=== PATIENT | male | born 1995 | race Caucasian/White ===

== ENCOUNTER 2020-02-06 07:19 | Emergency (ER) | payer SELFPAY ==
[2020-02-06 07:20] VITALS: BP 127/74; PULSE 60; RESP 17; TEMP 36.3; O2SAT 98; BMI 22.4
--- NOTE | 2020-02-06 07:36 | ED.VISSUMM ---
- ER Visit Summary Date of Service: 02/06/20 Chief Complaint: Abdominal pain History of Present Illness: The patient is a 24 M presenting with abdominal pain. Patient states this started 2 days ago. He states this started after eating greasy fast food. It worsens when he eats greasy food. He has nausea with no vomiting. Denies diarrhea constipation. Denies fever. Denies other complaints. Physical Examination: Vitals are stable. Patient is afebrile. Alert no acute distress. HEENT exam is unremarkable. Neck is supple. Lungs are clear and equal bilaterally. Heart is regular rate and rhythm. Abdomen is soft epigastric tenderness no rebound or guarding Extremities are unremarkable. Skin is warm and dry. Remainder of exam is unremarkable. Emergency Department Course and Treatment: Patient was given IV fluids, Zofran. CBC, chemistries are unremarkable. Liver lipase are normal. Patient was given a GI cocktail. On reevaluation, patient is resting comfortably. He is given prescription for Pepcid. Advised to follow-up with Dr. Crisostomo certified professional ergonomist for no doc. Advised return to the ED for worsening complaints. Disposition: Discharge home Impression: Abdominal pain This note was generated with [employer] dictation software. It may contain incorrect words, spelling, and punctuation that were not noted in review of the chart prior to signing ED Disposition - Plan for ED Patient: Instructions: ED Unknown Causes of Abdominal Pain Male Prescriptions: Famotidine [Pepcid] 20 mg PO BID #28 tab Prescription Printed Referrals: Nas Crisostomo MD [NON-STAFF] - Care Physician,No Primary [Primary Care Provider] -
[2020-02-06 07:44] LABS: Absolute Lymphocyte Count 3.86 X10^3/uL (0.83-4.51); Absolute Neutrophil Count 3.5 X10^3/uL (2.0-7.7); Basophil# 0.04 X10^3/uL; Basophil% 0.5 % (0-1); Eosinophil# 0.16 X10^3/uL; Eosinophils% 1.9 % (0-5); Hematocrit 48.6 % (40-54); Hemoglobin 15.8 g/dL (13.0-16.5); Lymphocyte # 3.86 X10^3/ul (4.0); Lymphocyte % 46.6 % (19-41); Mean Corp Hgb Conc 32.5 g/dL (32-36); Mean Corpuscular Hgb 30.2 pg (27.0-32.0); Mean Corpuscular Volume 92.9 fL (80-94); Mean Platelet Vol. 9.7 fl (6.2-12.0); Monocyte# 0.72 X10^3/uL; Monocyte% 8.7 % (0-10); NRBC Flagged by Analyzer 0 % (0-5); Neutrophil % 42.2 % (47-70); Platelet Count 256 K/mm3 (150-450); RBC Distribution Width CV 11.9 % (11.6-14.6); RBC Distribution Width SD 41.1 fl (35.1-43.9); Red Blood Count 5.23 M/mm3 (4.6-6.2); White Blood Count 8.3 K/mm3 (4.4-11.0)
[2020-02-06] MEDS: Ondansetron 4 MG/2 ML Vial IV (07:45)
[2020-02-06 08:03] LABS: ALB/GLOB Ratio 1.1 RATIO (0.9-2.4); AST(SGOT) 15 U/L (15-37); Alanine Aminotransfer ALT/SGPT 17 U/L (16-61); Albumin, Serum 3.8 g/dL (3.2-5.0); Alkaline Phosphatase 73 U/L (45-117); Anion Gap 3 (5-15); BUN 17 mg/dL (7-18); BUN/Creat Ratio 19.3 RATIO (10-20); Calcium,Total 8.7 mg/dL (8.5-10.1); Chloride 110 mmol/L (98-107); Creatinine, Serum 0.88 mg/dL (0.70-1.30); EST Glomerular Filtration Rate 114 mL/min (>60); Est Glom Filt Rate - Afr Amer 138 mL/min (>60); Estimated Creatinine Clearance 142.56 ml/min; Globulin 3.4 g/dL (2.2-4.2); Glucose 97 mg/dL (74-106); Lipase 83 U/L (73-393); Potassium 4.6 mmol/L (3.5-5.1); Protein, Total 7.2 g/dL (6.4-8.2); Sodium Level 143 mmol/L (136-145)
[2020-02-06] MEDS: Mag Hydrox/Al Hydrox/Simeth 30 ML UDC PO (08:11)
--- NOTE | 2020-02-06 08:29 | ED.DEP ---
ED Disposition - Plan for ED Patient: Instructions: ED Unknown Causes of Abdominal Pain Male Prescriptions: Famotidine [Pepcid] 20 mg PO BID #28 tablet Referrals: Care Physician,No Primary [Primary Care Provider] - Nas Crisostomo MD [NON-STAFF] -
[2020-02-06 08:38] VITALS: BP 130/81; PULSE 54; RESP 16; O2SAT 98
--- NOTE | 2020-02-07 05:33 | ED.RN ---
PT CALLED ASKING FOR A NEW WORK NOTE HE HAS LOST HIS ORIGINAL. COPY MADE AND LEFT AT TRIAGE FOR HIM TO SCOUTS. PT UPDATED AND THANKFUL.
== END 2020-02-06 08:39 | disposition home or self-care (01) ==
PROVIDERS: Emergency Provider Emergency Medicine
DX: R10.9 Unspecified abdominal pain (principal); F17.200 Nicotine dependence, unspecified, uncomplicated
CPT/HCPCS: 80053; 83690; 85025; 96361; 96374; 99285; J7030; A4216; J2405

== ENCOUNTER 2020-12-30 13:53 | Emergency (ER) | payer SELFPAY ==
[2020-12-30 13:55] VITALS: BP 129/82; PULSE 65; RESP 18; TEMP 36; O2SAT 99; BMI 23.3
[2020-12-30 14:47] LABS: Absolute Neutrophil Count 6.9 X10^3/uL (2.0-7.7); Basophil# 0.05 X10^3/uL; Basophil% 0.5 % (0-1); Eosinophil# 0.03 X10^3/uL; Eosinophils% 0.3 % (0-5); Hematocrit 49.2 % (40-54); Hemoglobin 16.3 g/dL (13.0-16.5); Lymphocyte % 22.7 % (19-41); Mean Corp Hgb Conc 33.1 g/dL (32-36); Mean Corpuscular Hgb 29.9 pg (27.0-32.0); Mean Corpuscular Volume 90.1 fL (80-94); Mean Platelet Vol. 9.3 fl (6.2-12.0); Monocyte# 0.45 X10^3/uL; Monocyte% 4.6 % (0-10); NRBC Flagged by Analyzer 0 % (0-5); Neutrophil # 6.93 X10^3/uL (2.7-7.7); Neutrophil % 71.6 % (47-70); Platelet Count 301 K/mm3 (150-450); RBC Distribution Width CV 12.2 % (11.6-14.6); Red Blood Count 5.46 M/mm3 (4.6-6.2); White Blood Count 9.7 K/mm3 (4.4-11.0)
[2020-12-30 14:59] LABS: Anion Gap 7 (5-15); BUN 7 mg/dL (7-18); BUN/Creat Ratio 8.1 RATIO (10-20); Calcium,Total 9.2 mg/dL (8.5-10.1); Chloride 106 mmol/L (98-107); Creatinine, Serum 0.87 mg/dL (0.70-1.30); EST Glomerular Filtration Rate 115 mL/min (>60); Est Glom Filt Rate - Afr Amer 139 mL/min (>60); Glucose 104 mg/dL (74-106); Potassium 4.1 mmol/L (3.5-5.1); Sodium Level 140 mmol/L (136-145)
[2020-12-30 15:12] LABS: Amphetamine Urine VISTA NEGATIVE (<1000 ng/mL); Barbiturate Urine VISTA NEGATIVE (< 200 ng/mL); Benzodiazepine Urine VISTA NEGATIVE (< 200 ng/mL); Cocaine Urine VISTA NEGATIVE (< 300 ng/mL); Ecstacy Urine VISTA NEGATIVE (< 500 ng/mL); Methadone Urine VISTA NEGATIVE (< 300 ng/mL); PCP Urine VISTA NEGATIVE (< 25 ng/mL); THC Urine VISTA POSITIVE (< 50 ng/mL); Vista UDS pH Range 8
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
[2020-12-30 16:38] VITALS: BP 140/78; PULSE 78; RESP 16; TEMP 36.8; O2SAT 98
[2020-12-30 16:42] VITALS: BP 148/54; PULSE 74; RESP 16; TEMP 36.6; O2SAT 98
[2020-12-30] MEDS: Doxycycline 100 MG CAPSULE PO (16:46)
[2020-12-30] MEDS: Ceftriaxone 500 MG Vial IM (16:49)
[2020-12-30 17:07] LABS: Neisserai gonorrhoeae by PCR Negative (Negative); Probe Check PASS
[2020-12-30 17:09] LABS: Chlamydia Trachomatis by PCR POSITIVE (Negative)
--- NOTE | 2020-12-30 17:12 | ED.RN ---
ATTEMPTED TO CALL PT WITH RESULTS. MAILBOX IS FULL UNABLE TO LEAVE A MESSAGE
--- NOTE | 2020-12-30 19:51 | ED.RN ---
PATIENT MADE AWARE OF TEST RESULTS. WHEN PICKING UP WORK EXCUSE
== END 2020-12-30 16:51 | disposition home or self-care (01) ==
PROVIDERS: Emergency Provider Emergency Medicine
DX: N34.2 Other urethritis (principal); F41.9 Anxiety disorder, unspecified; F17.200 Nicotine dependence, unspecified, uncomplicated
CPT/HCPCS: 80048; 80307; 82077; 85025; 87086; 87491; 87591; 96372; 99283

== ENCOUNTER 2021-01-02 11:11 | Emergency (ER) | payer SELFPAY ==
[2021-01-02 11:12] VITALS: BP 151/92; PULSE 89; RESP 16; TEMP 36.6; O2SAT 97; BMI 22.7
[2021-01-02 12:49] LABS: Absolute Lymphocyte Count 2.13 X10^3/uL (0.83-4.51); Absolute Neutrophil Count 6.8 X10^3/uL (2.0-7.7); Basophil# 0.04 X10^3/uL; Basophil% 0.4 % (0-1); Eosinophil# 0.01 X10^3/uL; Eosinophils% 0.1 % (0-5); Hematocrit 47.9 % (40-54); Hemoglobin 15.9 g/dL (13.0-16.5); Lymphocyte # 2.13 X10^3/ul (0.83-4.51); Lymphocyte % 22.2 % (19-41); Mean Corp Hgb Conc 33.2 g/dL (32-36); Mean Corpuscular Hgb 30.1 pg (27.0-32.0); Mean Corpuscular Volume 90.5 fL (80-94); Mean Platelet Vol. 9.3 fl (6.2-12.0); Monocyte# 0.61 X10^3/uL; Monocyte% 6.4 % (0-10); NRBC Flagged by Analyzer 0 % (0-5); Neutrophil # 6.76 X10^3/uL (2.7-7.7); Neutrophil % 70.6 % (47-70); Platelet Count 305 K/mm3 (150-450); RBC Distribution Width CV 11.9 % (11.6-14.6); RBC Distribution Width SD 39.8 fl (35.1-43.9); Red Blood Count 5.29 M/mm3 (4.6-6.2); White Blood Count 9.6 K/mm3 (4.4-11.0)
[2021-01-02 13:00] LABS: Anion Gap 5 (5-15); BUN 17 mg/dL (7-18); BUN/Creat Ratio 20.8 RATIO (10-20); Calcium,Total 9.5 mg/dL (8.5-10.1); Chloride 105 mmol/L (98-107); Creatinine, Serum 0.82 mg/dL (0.70-1.30); EST Glomerular Filtration Rate 123 mL/min (>60); Est Glom Filt Rate - Afr Amer 149 mL/min (>60); Estimated Creatinine Clearance 149.37 ml/min; Glucose 106 mg/dL (74-106); Potassium 4.1 mmol/L (3.5-5.1); Sodium Level 136 mmol/L (136-145)
[2021-01-02 13:21] LABS: Amphetamine Urine VISTA NEGATIVE (<1000 ng/mL); Barbiturate Urine VISTA NEGATIVE (< 200 ng/mL); Benzodiazepine Urine VISTA NEGATIVE (< 200 ng/mL); Cocaine Urine VISTA NEGATIVE (< 300 ng/mL); Ecstacy Urine VISTA NEGATIVE (< 500 ng/mL); Methadone Urine VISTA NEGATIVE (< 300 ng/mL); PCP Urine VISTA NEGATIVE (< 25 ng/mL); THC Urine VISTA POSITIVE (< 50 ng/mL); Vista UDS pH Range 6
[2021-01-02 13:21] LABS: Alcohol, Blood (Medical)-Serum < 3.0 mg/dL
--- NOTE | 2021-01-02 13:49 | ED.RN ---
CRISIS IN DEPT AND AWARE PT IS READY TO BE ASSESSED
[2021-01-02 14:50] VITALS: BP 139/72; PULSE 84; RESP 16; O2SAT 99
--- NOTE | 2021-01-02 16:03 | ED.RN ---
pt presents paranoid behavior with care. apprehensive about blood work. would not let nurse use betadine until nurse used and used on mother then apprehensivelywas going to allow it until mom started washing betadine off and then pt became resistant and paranoid asking when she was washing it off and pulled arm aware to stop it from touchng his skin. pt fixated on work, everyone hating him, wanting to be excepted. peoples negative comments and conspiring against him. states i care too much and people take advantage off me. pt gets very agitated about the thought of people using him and taking advantage of him with his voice escalating becoming restless/rocking forward and back and continuously rubbing hands back and forth through hair when he gets aggitated.
[2021-01-02 17:06] VITALS: PULSE 72; RESP 16; O2SAT 99
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
--- NOTE | 2021-01-02 18:22 | ED.RN ---
pt moother reports she was under the impression pt was pink slipped and was going to a place in [place] for therapy. this nurse called crisis center for clarification. counselor notes report that he would benefit from placement to a facility for some inpatient therapy but there was no documentation that of nee for pink slip. this nurse does not currently have pink slip for pt. discussed with counseling center if there was need for one or other updates please call the emergency room to update staff. crisis is working to place patient by no pink slip at this time.
--- NOTE | 2021-01-02 19:11 | ED.RN ---
[facility] called to update: pt has admission pending to [facility] waiting final approval.
--- NOTE | 2021-01-02 20:12 | ED.RN ---
HAD NO BEDS AVAILABLE ANABELL, SAID IF WE COULD KEEP HIM OVERNIGHT THEY WOULD HAVE A BED IN THE MORNING AT [facility]
[2021-01-02] MEDS: LORazepam 1 MG Tablet PO (20:15)
[2021-01-02 21:34] VITALS: BP 121/84; PULSE 61; RESP 16; O2SAT 99
--- NOTE | 2021-01-02 22:54 | ED.RN ---
CALLED TO SET UP A RIDE FOR THE PATIENT FOR IN THE MORNING TO GO TO [facility] AT 0700
[2021-01-03 00:58] VITALS: RESP 14
[2021-01-03 01:30] VITALS: RESP 16
[2021-01-03 02:00] VITALS: RESP 14
[2021-01-03 03:07] VITALS: RESP 16
[2021-01-03 04:36] VITALS: RESP 16
[2021-01-03 05:01] VITALS: BP 132/84; PULSE 75; RESP 16; O2SAT 99
== END 2021-01-03 07:42 ==
LOC: ED 13:23
PROVIDERS: Emergency Provider Emergency Medicine
DX: F22 Delusional disorders (principal); Z72.0 Tobacco use
CPT/HCPCS: 80048; 80307; 82077; 85025; 99285

== ENCOUNTER 2021-05-24 21:50 | Emergency (ER) | payer MEDICAID, SELFPAY ==
[2021-05-24 21:50] VITALS: BP 137/74; PULSE 73; RESP 16; TEMP 36.6; O2SAT 98; BMI 26.9
--- NOTE | 2021-05-24 23:01 | US_ITS ---
STUDY: SCROTUM ULTRASOUND REASON FOR EXAM: Male, 25 years old. Pain TECHNIQUE: Ultrasound evaluation of the scrotum was performed with color Doppler and static zepeda-scale imaging. COMPARISON: None. FINDINGS: RIGHT TESTICLE INTRATESTICULAR: There is a normal size of the right testicle. The right testicle measures 5.6 x 3.0 x 2.6 cm. There is a homogenous echotexture. There is normal arterial and normal venous vascularity. There is no demonstrated right testicular mass or cyst. EXTRATESTICULAR: The epididymis is normal in size. The epididymis head measures 0.9 x 1.1 x 1.0 cm. There is normal vascularity of the epididymis. There is no demonstrated epididymal cystic structure. There is no demonstrated hydrocele. There is no demonstrated varicocele. There is no demonstrated extratesticular mass or cyst. The right scrotal wall measures 0.3 cm. LEFT TESTICLE INTRATESTICULAR: There is a normal size of the left testicle. The left testicle measures 5.2 x 3.0 x 2.0 cm. There is a homogenous echotexture. There is normal arterial and normal venous vascularity. There is no demonstrated left testicular mass or cyst. EXTRATESTICULAR: The epididymis is normal in size. The epididymis head measures 1.1 x 1.3 x 1.0 cm. There is normal vascularity of the epididymis. There is no demonstrated epididymal cystic structure. There is no demonstrated hydrocele. There is no demonstrated varicocele. There is no demonstrated extratesticular mass or cyst. The left scrotal wall measures 0.3 cm. US/Testicular with Arterial Flow IMPRESSION: Normal bilateral testicular ultrasound. Electronically Signed: La Mann MD at 0:53 EDT , Service support ,
--- NOTE | 2021-05-24 23:04 | EDS_ITS ---
HPI History of Present Illness Chief Complaint: Male Pain/Injury Narrative Narrative: Patient presents with left testicular pain that started approximately an hour ago, when he went to stand up. He has past medical history of Asperger's, and states that he is having problems with erectile dysfunction for the last 3 weeks. He has not had sexual intercourse. He denies any penile discharge. He was wearing boxer briefs, and went to stand up, and now has sharp pain mainly in his left testicle on the posterior aspect. He denies any dysuria or hematuria. No fevers or chills. He states that he removed his undergarment because it felt like it was pressing on it, causing him pain. [facility] Medical History (Updated 05/25/21 @ 03:54 by Musa Jorge MD) Asthma Home Medications risperidone mg 05/24/21 [History Last Taken Unknown] Allergy/AdvReac Type Severity Reaction Status Date / Time No Known Allergies Allergy Verified 05/24/21 21:52 Social History Smoking Status: Never smoker ROS ROS ED ROS Narrative Constitutional: No fever, no chills. HEENT: No sore throat. No neck pain. No loss of vision. No rhinorrhea. Cardiovascular: No chest pain. No palpitations. No pedal edema. Respiratory: No cough, no shortness of breath. Abdominal: No abdominal pain. No nausea. No vomiting. Genitourinary: No dysuria. No hematuria. Positive left posterior testicular pain. Musculoskeletal: No myalgias. No arthralgias. Neurologic: No headaches. No dizziness. No lightheadedness. Skin: No rash. No change in color. Psychiatric: No depression. No anxiety. EXAM Physical Exam Narrative Exam Narrative: Afebrile. Vital signs noted. HEENT: Normocephalic. Atraumatic. PERRL, EOMI. Neck soft and supple. No point tenderness or step off. Cardiovascular: Regular rate and rhythm. No murmurs, rubs, or gallops appreciated. Respiratory: No tachypnea. Lungs clear to auscultation bilaterally. Gastrointestinal: Abdomen soft, nontender, with normoactive bowel sounds. No rebound or guarding. Genitourinary: Chaperoned examination reveals left epididymal tenderness. Normal testicular lie. No testicular tenderness bilaterally. Neurological: Awake. Alert. Nonfocal, nonlateralizing. Skin: No rash. Normal color. No pallor. Musculoskeletal: No pedal edema. Full range of motion extremities. Const Vital Signs: 05/24/21 21:50 05/25/21 00:38 05/25/21 02:08 Temperature 97.8 F Temperature Source Temporal Pulse Rate 73 78 76 Respiratory Rate 16 16 17 Blood Pressure 137/74 H 135/72 H 130/78 H Blood Pressure Mean 95 93 95 Pulse Ox 98 98 98 Oxygen Delivery Method Room Air Room Air MDM MDM MDM Narrative Medical decision making narrative: I do feel that the patient may have epididymitis. However, given its sudden onset, ultrasound will be obtained. I will also obtain a urinalysis. He was given 1 [place] tablet for analgesia. His ultrasound shows no evidence of epididymitis or orchitis. It was read as a normal bilateral testicular ultrasound. Results have been faxed to the emergency department from radiology. Urinalysis shows 0-5 WBCs within normal limits. At this point in time, I am unsure to the cause of his testicular pain. However, I feel he can be discharged safely home with follow-up to urology. He was told to wear more constrictive underwear, and take [id number] analgesics. Disposition is discharged home in stable condition. Lab Data Attestation: I reviewed the patient's lab results. Labs: Laboratory Results - last 24 hr 05/24/21 23:20 Urine Color Yellow Urine Clarity Cloudy Urine pH 8.0 Ur Specific [place] 1.015 Urine Protein 15 H Urine Glucose (UA) Normal Urine Ketones Negative Urine Occult Blood Negative Urine Nitrite Negative Urine Bilirubin Negative Urine Urobilinogen 4 H Ur Leukocyte Esterase 25 H Urine RBC 0 SEEN Urine WBC 0-5 SEEN Ur Squamous Epith Cells 0 SEEN Amorphous Sediment 4+ Urine Bacteria RARE Urine Mucus 0 SEEN Discharge Plan Triage Chief Complaint: Male Pain/Injury ED Provider: Musa Jorge Dx/Rx/DC Orders Clinical Impression: Left testicular pain Prescriptions: No Action risperidone 4 mg tablet RF: 0 Primary Care Provider: Care Physician,No Primary Referrals: Anne-Marie Mars MD [STAFF PHYSICIAN] - 05/26/21 Care Physician,No Primary [Primary Care Provider] - Clinic,[facility] [NON-STAFF] - Disposition Disposition: Home, Self Care Discharge Date/Time: 05/25/21 04:00
[2021-05-24] MEDS: HYDROcodone Bitartrate/Apap 5/325 Tablet PO (23:13)
[2021-05-24 23:25] LABS: Mucous, Urine 0 SEEN /hpf (<or=2+); Red Blood Cells-Urine 0 SEEN /hpf (0-5); Squamous Epithelial Cells - UA 0 SEEN /hpf (0-5)
[2021-05-24 23:35] LABS: Color, Urine Yellow (Yellow); Glucose, Dipstick Normal (Normal); Ketone-Dipstick Negative (Negative); Leukocyte Esterase-Dipstick 25 /ul (Negative); Nitrite-Dipstick Negative (Negative); Occult Blood-Urine Negative /ul (Negative); Protein-Dipstick 15 mg/dl (Negative); Specific Gravity, Urine 1.015 (1.002-1.030); Urine Bilirubin Dipstick Negative (Negative); Urine Clarity Cloudy (Clear); Urine Urobilinogen 4 mg/dl (Normal)
[2021-05-25 00:07] LABS: Amorphous Sediment 4+; Bacteria RARE /hpf (None Seen); White Blood Cells 0-5 SEEN /hpf (0-5)
[2021-05-25 00:38] VITALS: BP 135/72; PULSE 78; RESP 16; O2SAT 98
[2021-05-25 02:08] VITALS: BP 130/78; PULSE 76; RESP 17; O2SAT 98
== END 2021-05-25 04:00 | disposition home or self-care (01) ==
PROVIDERS: Emergency Provider Emergency Medicine
DX: N50.812 Left testicular pain (principal)
CPT/HCPCS: 76870; 81001; 93976; 99283

== ENCOUNTER 2021-09-24 01:40 | Emergency (ER) | payer MEDICAID, SELFPAY ==
[2021-09-24 01:41] VITALS: BP 138/76; PULSE 89; RESP 27; TEMP 37.3; O2SAT 98; BMI 27.0
--- NOTE | 2021-09-24 01:53 | RAD_ITS ---
EXAM: XR CHEST, 1 VIEW CLINICAL INDICATION: chest pain chest pain TECHNIQUE: Frontal view of the chest. This report was created using [employer] report generation technology. COMPARISON: 12/12/2015. FINDINGS: LIMITATIONS: The exam is slightly limited by shallow depth of inspiration as well as kyphotic positioning. LUNGS AND PLEURAL SPACES: Unremarkable. No consolidation or edema. No pneumothorax. No effusion. HEART: The heart size is probably normal, taking into account limited depth of inspiration as well as AP portable technique. MEDIASTINUM: Central airways and mediastinal contour are unremarkable. BONES/JOINTS: Unremarkable. SOFT TISSUES: Unremarkable. RAD/Chest 1 View (Portable) IMPRESSION: No acute findings in the chest. Electronically Signed: Edwin Sood MD at 2:43 EST , Service support ,
--- NOTE | 2021-09-24 01:53 | EKG12_ITS ---
Test Reason : CP Blood Pressure : / mmHG Vent. Rate : 075 BPM Atrial Rate : 075 BPM P-R Int : 158 ms QRS Dur : 100 ms QT Int : 370 ms P-R-T Axes : 010 083 047 degrees QTc Int : 413 ms Likely Sinus Rhythm Otherwise normal ECG Confirmed by HELLEN FERRARI, KRISTIN ([id number]), photographic editor PENNIE ZELAYA ([id number]) on 09/24/2021 1:27:38 PM Referred By: ERIC Confirmed By:ANGI MACEDO MD
--- NOTE | 2021-09-24 01:54 | EX.ED.DYSGE1 ---
HPI History of Present Illness Chief Complaint: Chest Pain Detail of Chief Complaint: Chest pain and shortness of breath that started 2 days ago Informant: patient Narrative Narrative: Patient presents with chest pain or shortness of breath that started 2 days ago. Patient denies any injury to his chest. He denies any fever or cough. Patient states that the pain is mostly over his left chest and hurts to take a deep breath. Rates his pain an 8 out of 10. He denies recent travel or surgery. No history of PE or DVT. Denies COVID symptoms. He has not had discomfort like this before. Prior similar symptoms: No [facility] Medical History (Updated 09/24/21 @ 02:[address] Juan Luis Flores, DO) Asthma Home Medications hydrocodone-acetaminophen 1 tab PO Q4H PRN PRN 2 Days #10 tablet 09/24/21 [Rx Last Taken Unknown] lurasidone [Latuda] mg 09/24/21 [History Last Taken Unknown] naproxen 500 mg PO BID #14 tab 09/24/21 [Rx Last Taken Unknown] Allergy/AdvReac Type Severity Reaction Status Date / Time No Known Allergies Allergy Verified 09/24/21 01:44 Social History Smoking Status: Current every day smoker tobacco type: cigars ROS ROS ED Constitutional Constitutional ED: Reports systems reviewed and no addt'l complaints, except as documented; Denies body ache(s), change in weight or chills Eyes Eyes: Denies acute decrease in peripheral vision, change in vision, double vision or loss of vision ENT ENT ED: Reports none; Denies ear pain, lip swelling, loss taste/smell, neck pain, otalgia or sore throat Cardiovascular Cardiovascular: Reports none and chest pain; Denies abdominal pain, chest pain with activity, leg edema, lightheadedness, palpitations, rapid heart rate or syncope Respiratory/Chest Respiratory/Chest: Reports none and dyspnea; Denies change in mental status, dry cough, hemoptysis, shortness of breath at rest or shortness of breath with exertion Gastrointestinal Gastrointestinal: Reports none; Denies abdominal pain, change in stool character, diarrhea, hematemesis, hematochezia, melena, rectal bleeding or vomiting Genitourinary Genitourinary ED: Reports none; Denies abdominal discomfort, anuria, dysuria, genital pain or polyuria Musculoskeletal Musculoskeletal: Reports none; Denies arthralgias, back pain, difficulty walking, extremity pain, muscle weakness or myalgias Integumentary Reports none; Denies abscess or rash Neurologic Neurologic: Reports none; Denies abnormal gait, confusion, focal weakness, frequent falls, headache(s), loss of vision, numbness, paresthesias, radicular pain, vertigo or weakness Psychiatric Psychiatric: Reports systems reviewed and no addt'l complaints, except as documented and none; Denies behavioral changes, confusion, difficulty concentrating, hallucinations, suicidal ideation, tactile hallucinations or visual hallucinations Endocrine Endocrinology: Denies none, cold intolerance, excessive sweating, fatigue or heat intolerance Hematologic/Lymphatic Hematologic/Lymphatic: Reports none; Denies anemia, easy bleeding or easy bruising Allergic/Immunologic Allergic/Immunologic ED: Denies as per HPI, none, lip swelling, mouth swelling, throat swelling, tongue swelling or hives EXAM Physical Exam Const Vital Signs: 09/24/21 01:41 Temperature 99.2 F H Temperature Source Temporal Pulse Rate 89 Respiratory Rate 27 H Blood Pressure 138/76 H Blood Pressure Mean 96 Pulse Ox 98 Oxygen Delivery Method Room Air Positive well nourished and well developed General Appearance ED: well developed and NAD HEENT Reports TM's clear and moist mucous membranes normocephalic and atraumatic; Negative for trauma or tenderness Tympanic Membrane ED: Yes TM's clear Eyes PERRL and EOMs intact bilaterally General Eye ED: Negative for pale conjunctiva or scleral icterus Neck no lymphadenopathy, supple and no JVD General: Negative for tenderness Chest Wall inspection of chest normal Chest Narrative: Mild tenderness over the left anterior chest wall on palpation Chest: Negative for tenderness Resp normal respiratory effort and clear to auscultation bilaterally Effort and Inspection: Negative for respiratory distress or pain with movement Auscultation: Negative for rhonchi, wheezes or diminished lung sounds Cardio regular rate, regular rhythm, S1 normal heart sound, S2 normal heart sound and no murmurs Peripheral Pulses: pulses 2+ throughout GI normal to inspection, nondistended, normoactive bowel sounds, soft to palpation, non-tender, non-distended and no masses Back/Spine no CVA tenderness and no thoracic nor lumbar tenderness Extremity normal to inspection General Extremety ED: Negative for edema General Extremity: Negative for edema Neuro oriented x3, CN's II-XII intact bilaterally, no sensory deficits noted and gait normal Sensorium / Orientation: awake, alert, oriented to person, oriented to place and oriented to time Motor Exam: strength 5/5 throughout and strength abnormal Psych mental status grossly normal Skin no rashes or lesions noted and no wounds MDM MDM MDM Narrative Medical decision making narrative: IV line established on arrival. Patient was medicated with Toradol, and morphine and Zofran. Patient continued complaint of pain and was given a milligram of Dilaudid IV. At this point etiology of patient's pain is unclear. I suspect likely musculoskeletal versus pleurisy. Patient will be given a prescription for Naprosyn and Constantine for pain. Patient advised to follow-up with primary care physician in 3 to 5 days. He is advised to return if worsening pain, fever, hemoptysis, or condition should worsen anyway. Lab Data Attestation: I reviewed the patient's lab results. Labs: Laboratory Results - last 24 hr 09/24/21 09/24/21 09/24/21 01:44 01:44 01:44 WBC 11.4 H RBC 5.12 Hgb 15.6 Hct 45.8 MCV 89.5 MCH 30.5 MCHC 34.1 RDW Std Deviation 40.0 RDW Coeff of Argenis 12.2 Plt Count 316 MPV 9.5 Immature Gran % (Auto) 0.300 Neut % (Auto) 57.6 Lymph % (Auto) 33.3 Jennings % (Auto) 7.2 Eos % (Auto) 1.1 Baso % (Auto) 0.5 Absolute Neuts (auto) 6.5 Absolute Lymphs (auto) 3.78 Nucleated RBC % 0 ESR 4 D-Dimer Quant (PE/DVT) 0.39 Sodium 140 Potassium 3.6 Chloride 105 Carbon Dioxide 28.0 Anion Gap 7 BUN 17 Creatinine 1.18 Estim Creat Clear Calc 109.09 Est GFR (MDRD) Af Amer 97 Est GFR (MDRD) Non-Af 80 BUN/Creatinine Ratio 14.4 Glucose 147 H Calcium 8.8 Troponin I High Sens 3 Radiography Diagnostic Testing: Clinical Impression(s) from Imaging Studies Chest X-Ray 09/24/21 01:53 IMPRESSION: No acute findings in the chest. Electronically Signed: Edwin Sood MD at 2:43 EST , Service support , 1 view chest x-ray obtained interpreted by myself as no acute disease process without evidence of pneumothorax or infiltrate. Radiology in agreement. EKG Initial EKG: Attestation: I personally reviewed and interpreted this EKG as follows: Comments: Sinus rhythm with a ventricular rate of 75 bpm with no acute ST segment changes. No evidence of pericarditis. Discharge Plan Triage Chief Complaint: Chest Pain ED Provider: Juan Luis Flores Dx/Rx/DC Orders Clinical Impression: Chest pain Instructions: ED Chest Pain, Uncertain Cause Prescriptions: New hydrocodone-acetaminophen [hydrocodone-acetaminophen] 1 TABLET tablet 1 tab PO Q4H PRN PRN (Reason: Pain) 2 Days Qty: 10 RF: 0 naproxen 500 MG tablet 500 mg PO BID Qty: 14 RF: 0 No Action Latuda 40 mg tablet RF: 0 Primary Care Provider: Care Physician,No Primary Referrals: Milan Gallegos MD [STAFF PHYSICIAN] - 3-5 Days Care Physician,No Primary [Primary Care Provider] - Disposition Disposition: Home, Self Care
[2021-09-24 02:05] LABS: Absolute Lymphocyte Count 3.78 X10^3/uL (0.83-4.51); Absolute Neutrophil Count 6.5 X10^3/uL (2.0-7.7); Basophil# 0.06 X10^3/uL; Basophil% 0.5 % (0-1); Eosinophil# 0.13 X10^3/uL; Eosinophils% 1.1 % (0-5); Hematocrit 45.8 % (40-54); Hemoglobin 15.6 g/dL (13.0-16.5); Lymphocyte # 3.78 X10^3/ul (0.83-4.51); Lymphocyte % 33.3 % (19-41); Mean Corp Hgb Conc 34.1 g/dL (32-36); Mean Corpuscular Hgb 30.5 pg (27.0-32.0); Mean Corpuscular Volume 89.5 fL (80-94); Mean Platelet Vol. 9.5 fl (6.2-12.0); Monocyte# 0.82 X10^3/uL; Monocyte% 7.2 % (0-10); NRBC Flagged by Analyzer 0 % (0-5); Neutrophil # 6.53 X10^3/uL (2.7-7.7); Neutrophil % 57.6 % (47-70); Platelet Count 316 K/mm3 (150-450); RBC Distribution Width CV 12.2 % (11.6-14.6); Red Blood Count 5.12 M/mm3 (4.6-6.2); White Blood Count 11.4 K/mm3 (4.4-11.0)
[2021-09-24] MEDS: Ondansetron 4 MG/2 ML Vial IV (02:07)
[2021-09-24] MEDS: Morphine 4 MG/ML Syringe IV (02:08)
[2021-09-24] MEDS: Ketorolac 30 MG/ML Syringe IV (02:09)
[2021-09-24 02:27] LABS: D-Dimer Quantitative (DVT/PE) 0.39 FEU/ug/m (0.27-0.49)
[2021-09-24 02:28] LABS: Anion Gap 7 (5-15); BUN 17 mg/dL (7-18); BUN/Creat Ratio 14.4 RATIO (10-20); Calcium,Total 8.8 mg/dL (8.5-10.1); Chloride 105 mmol/L (98-107); Creatinine, Serum 1.18 mg/dL (0.70-1.30); EST Glomerular Filtration Rate 80 mL/min (>60); Est Glom Filt Rate - Afr Amer 97 mL/min (>60); Estimated Creatinine Clearance 109.09 ml/min; Glucose 147 mg/dL (74-106); Potassium 3.6 mmol/L (3.5-5.1); Sodium Level 140 mmol/L (136-145); Troponin-I HS 3 pg/mL (3.0-78.0)
[2021-09-24 02:32] LABS: Erythrocyte Sedimentation Rate 4 mm/hr (0-20)
[2021-09-24] MEDS: HYDROmorphone 1 MG/ML Syringe IV (02:52)
[2021-09-24 03:13] VITALS: BP 141/70; PULSE 93; RESP 18; O2SAT 96
== END 2021-09-24 03:14 | disposition home or self-care (01) ==
PROVIDERS: Emergency Provider Emergency Medicine; Visit Provider Emergency Medicine
DX: R07.9 Chest pain, unspecified (principal); R06.02 Shortness of breath; F17.290 Nicotine dependence, other tobacco product, uncomplicated
CPT/HCPCS: 71045; 80048; 84484; 85025; 85379; 85652; 87426; 93005; 96374; 96375; 99284; J7030; A4216; J2405

== ENCOUNTER 2021-12-14 21:50 | Emergency (ER) | payer MEDICAID, SELFPAY ==
[2021-12-14 21:50] VITALS: BP 149/113; PULSE 144; RESP 16; TEMP 36.1; O2SAT 98; BMI 27.7
--- NOTE | 2021-12-14 21:52 | CM.ED ---
LAWRENCE Note LAWRENCE received call from Colette, with [facility]. Colette said that both she and Any spoke to patient poppy. Colette said that patient has a long history of working with [facility] ([facility]) but does not often work with Crisis. Colette said that patient DOES NOT need inpatient and that Any said Don't worry you won't be hospitalized . Colette said that patient is not homicidal or suicidal. Patient at his baseline is super anxious and paranoid but is very anxious currently. Colette said that patient stopped his medication because he thought it caused him to feel this way. Colette said that Any told patient to take his meds tonight but continued to be VERY anxious so they advised him to come to the ED. Patient is linked with MD Yuriy Rojo and patient reports he plans to call Dr. Rojo in the morning. LAWRENCE updated boat carpenter Ryan and assigned ROB REHMAN
[2021-12-14 22:16] VITALS: RESP 17
--- NOTE | 2021-12-14 22:54 | EDS_ITS ---
HPI History of Present Illness Chief Complaint: Anxiety Narrative Narrative: Patient has a past medical history of paranoid schizophrenia. He states he has been having medications changed and adjusted because they have not been controlling his symptoms. He reports he has been having increased anxiety despite taking his medication recently. He denies any homicidal or suicidal ideation. He states he called crisis center today to discuss his symptoms and they recommended he come to the hospital to receive a shot. Secondary to this patient presents for evaluation at this time. [facility] Medical History Asthma Home Medications lurasidone [Latuda] 40 mg DAILY 09/24/21 [History Last Taken Unknown] buspirone 5 mg TID 12/14/21 [History Last Taken Unknown] Allergy/AdvReac Type Severity Reaction Status Date / Time No Known Allergies Allergy Verified 12/14/21 21:52 Social History Smoking Status: Current every day smoker tobacco type: cigars ROS ROS ED Constitutional Constitutional ED: Denies chills or fever(s) ENT ENT ED: Denies sore throat Cardiovascular Cardiovascular: Denies chest pain Respiratory/Chest Respiratory/Chest: Denies cough or dyspnea Gastrointestinal Gastrointestinal: Denies abdominal pain, diarrhea, nausea or vomiting Genitourinary Genitourinary ED: Denies dysuria Musculoskeletal Musculoskeletal: Denies myalgias Integumentary Denies rash Neurologic Neurologic: Denies headache(s) Psychiatric Psychiatric: Reports anxiety; Denies suicidal ideation or suicidal thoughts Hematologic/Lymphatic Hematologic/Lymphatic: Denies easy bleeding or easy bruising EXAM Physical Exam Const Vital Signs: 12/14/21 21:50 12/14/21 22:16 Temperature 97 F L Temperature Source Temporal Pulse Rate 144 H Respiratory Rate 16 17 Blood Pressure 149/113 H Blood Pressure Mean 125 Pulse Ox 98 Oxygen Delivery Method Room Air Positive well nourished and well developed General Appearance ED: well developed Eyes PERRL and EOMs intact bilaterally Neck supple Resp normal respiratory effort and clear to auscultation bilaterally Cardio regular rhythm Rate: tachycardic GI normal to inspection, nondistended, normoactive bowel sounds, non-tender, non-distended and no masses Auscultation: normoactive bowel sounds Palpation: soft Extremity normal to inspection Neuro oriented x3 and CN's II-XII intact bilaterally Sensorium / Orientation: alert Motor Exam: strength 5/5 throughout Psych Psych Narrative: Nervous/anxious affect without homicidal or suicidal ideation Mood & Affect: anxious Skin no rashes or lesions noted MDM MDM MDM Narrative Medical decision making narrative: Patient presented to the ER with breakthrough anxiety. He reports has been taking his meds as directed without symptom control. He denies any homicidal or suicidal ideation and reported his already talked to crisis center today and he did not feel he warranted placement. I do agree with this assessment based on the fact that he is not manic or having increasing paranoia nor is he homicidal or suicidal. He is slightly tachycardic and hypertensive consistent with anxiety. Therefore patient will be given Ativan in the ER to try and help reduce his symptoms acutely but as he does not report homicidal or suicidal ideation I do not feel there is need for psychiatric work-up and patient will be discharged and continue outpatient treatment. Discharge Plan Triage Chief Complaint: Anxiety ED Provider: Eagle Nielson Dx/Rx/DC Orders Clinical Impression: Acute anxiety Instructions: ED Anxiety Reaction Prescriptions: No Action Latuda 40 mg tablet 40 mg DAILY RF: 0 buspirone 5 mg tablet 5 mg TID RF: 0 Primary Care Provider: Care Physician,No Primary Referrals: Leydi Lnid MD [STAFF PHYSICIAN] - 3-5 Days if not improving Care Physician,No Primary [Primary Care Provider] - Disposition Disposition: Home, Self Care
[2021-12-14] MEDS: LORazepam 2 MG/ML Syringe IM (23:02)
[2021-12-14 23:04] VITALS: PULSE 78; RESP 17; O2SAT 98
== END 2021-12-14 23:05 | disposition home or self-care (01) ==
PROVIDERS: Emergency Provider Emergency Medicine; Visit Provider Emergency Medicine
DX: F41.9 Anxiety disorder, unspecified (principal); F17.290 Nicotine dependence, other tobacco product, uncomplicated
CPT/HCPCS: 96372; 99282

== ENCOUNTER → 2022-07-07 | Outpatient (CLI) | payer MEDICAID, SELFPAY ==
--- NOTE | 2022-07-07 09:41 | TELEMED_ITS ---
[facility] has confirmed receipt of a request for visit. This document confirms receipt of the order initiating the consult. To find the results of the consultation, please view the patient's reports for the scanned Telemed Consult.
== END | disposition home or self-care (01) ==
LOC: PSN 08:38
PROVIDERS: PCP Internal Medicine; Referring Provider Psychiatry & Neurology Neurology; Visit Provider Psychiatry & Neurology Neurology
DX: S06.9X9A Unspecified intracranial injury with loss of consciousness of unspecified duration, initial encounter (principal); F25.9 Schizoaffective disorder, unspecified; X58.XXXA Exposure to other specified factors, initial encounter; F41.9 Anxiety disorder, unspecified; R41.89 Other symptoms and signs involving cognitive functions and awareness
CPT/HCPCS: 95819

== ENCOUNTER → 2022-07-21 | Outpatient (CLI) | payer MEDICAID, SELFPAY ==
--- NOTE | 2022-07-21 17:45 | MRI_ITS ---
EXAM: MR HEAD WITHOUT AND WITH INTRAVENOUS CONTRAST CLINICAL INDICATION: postoperative evaluation of TBI TECHNIQUE: Multiplanar and multisequence MR images of the brain were obtained without and with intravenous contrast. This report was created using [employer] report generation technology. CONTRAST: 19mL Clariscan COMPARISON: None. FINDINGS: BRAIN AND EXTRA-AXIAL SPACES: Incidental 4.7 cm arachnoid cyst present within the left middle cranial fossa. 10 mm focal cortical defect within the right cerebellar suggestive of chronic insult. No abnormal contrast enhancement. No intra- or extra-axial hemorrhage. No evidence of acute infarct. No intracranial mass or mass effect. There is preservation of the zepeda/white matter interface. Ventricles are appropriate for age. No hydrocephalus. Basal cisterns are patent. SELLA: Normal. Normal sella turcica, pituitary gland, infundibular stalk, optic chiasm and hypothalamus. AUDITORY SYSTEM: Normal. The internal auditory canals are patent. BONES/JOINTS: Left frontoparietal craniectomy defect noted. SINUSES: Unremarkable as visualized. Clear. MASTOID AIR CELLS: Unremarkable as visualized. Clear. ORBITS: Unremarkable as visualized. Both globes, extraocular muscles, optic nerves and retrobulbar fat appear unremarkable. VASCULATURE: Unremarkable as visualized. Normal flow voids in the major intracranial circulation. MRI/Brain W/WO Contrast IMPRESSION: No acute or significant chronic intracranial abnormality. Electronically Signed: Herbert Krisnha MD at 9:49 EST ,
== END | disposition home or self-care (01) ==
LOC: MRI 17:29
PROVIDERS: PCP Internal Medicine; Visit Provider Psychiatry & Neurology Neurology
DX: S06.9X9A Unspecified intracranial injury with loss of consciousness of unspecified duration, initial encounter (principal); F25.9 Schizoaffective disorder, unspecified; R41.89 Other symptoms and signs involving cognitive functions and awareness; H91.90 Unspecified hearing loss, unspecified ear
CPT/HCPCS: 70553; A9575

== ENCOUNTER → 2022-07-27 | Outpatient (CLI) | payer MEDICAID, SELFPAY ==
--- NOTE | 2022-07-27 12:25 | MRI_ITS ---
STUDY: MRI ARTHROGRAM OF LEFT SHOULDER REASON FOR EXAM: Male, 26 years old. Pain after fall on left shoulder onto concrete. Evaluate for labral tear. TECHNIQUE: Standardized fat and water weighted pulse sequences with ABER view were obtained in all 3 orthogonal planes after the intra-articular administration of a solution containing Clariscan contrast. COMPARISON: Left shoulder x-rays dated July 05, 2022. FINDINGS: Adequate distention of the joint with contrast. Minimal supraspinatus tendinosis without full-thickness tear (coronal series 4 image 11). Normal infraspinatus tendon. Normal subscapularis tendon. Normal teres minor tendon. Normal supraspinatus muscle. Normal infraspinatus muscle. Normal subscapularis muscle. Normal teres minor muscle. Normal glenohumeral articulation. Normal humeral head and visualized proximal humerus. Normal biceps labral complex. Split tear of the long head of the biceps tendon within the intertubercular sulcus (axial series 2 image 11). Normal labrum. Normal capsulo- ligamentous complex. Normal rotator interval. Normal acromioclavicular articulation. There is a Type II morphology (curved), with a neutral orientation. There is no subacromial-subdeltoid bursal fluid. Normal visualized coracohumeral and coracoacromial ligaments. Normal quadrilateral space. Normal axillary space. Normal deltoid muscle. Normal trapezius muscle. MRI/Upper Ext Jt Only W/Contrast IMPRESSION: Minimal supraspinatus tendinosis. Split tear of the intertubercular portion of the long head of the biceps tendon. No rotator cuff tear. No labral tear. Electronically Signed: Geoffrey Granda, at 15:25 EST ,
--- NOTE | 2022-07-27 12:35 | RAD_ITS ---
CLINICAL HISTORY: Male, 26 years old. Left shoulder pain. Possible labral tear. PROCEDURE: ARTHROGRAM - LEFT SHOULDER CONSENT: The procedure as well as the benefits and possible complications including infection and bleeding were expanded to the patient. Informed consent was obtained. FLUOROSCOPY TIME (if supplied): (42 seconds) minutes/seconds Injection Information: 10 cc of dilute MRI contrast Number of images obtained: 4 TECHNIQUE: (All elements of maximal sterile barrier technique followed, including US elements as applicable) The patient was in the supine position. The overlying skin was prepped and draped in the usual sterile fashion. Following local anesthetic application and under direct fluoroscopic guidance, a 22-gauge spinal needle was placed into the left shoulder joint. 2 cc of ISOVUE 300 was injected for confirmation. Following this, 10 cc of dilute MRI contrast was injected. The patient tolerated procedure well. RAD/Arthrogram Shoulder w/ MRI IMPRESSION: Left shoulder arthrogram for MRI imaging. The patient tolerated the procedure well. Electronically Signed: Isaac Shelley MD at 13:54 EST ,
[2022-07-27] MEDS: Lidocaine 2% (5ml sdv) 5 ML VIAL.MPF INFILT (13:05)
[2022-07-27] MEDS: Iopamidol 10 ML in Syringe 1 EACH 600 ML INTRAARTIC (13:05)
[2022-07-27] MEDS: Gadoterate Meglumine Diluted 10 ML, Iopamidol 5 ML, Lidocaine 1% (20 ml mdv) 5 ML, Epin... INTRAARTIC (13:07)
== END | disposition home or self-care (01) ==
LOC: RAD 12:21
PROVIDERS: PCP Internal Medicine; Referring Provider Orthopaedic Surgery Sports Medicine; Visit Provider Orthopaedic Surgery Sports Medicine
DX: M25.312 Other instability, left shoulder (principal); M25.512 Pain in left shoulder
CPT/HCPCS: 23350; 73222; 77002; Q9967

== ENCOUNTER 2022-09-01 10:30 | Outpatient (RCR) | payer MEDICAID, SELFPAY ==
--- NOTE | 2022-04-05 10:33 | HP.SP.EV_ITS ---
History - History Date of Eval: 04/05/22 Medical Diagnosis (from RX): Traumatic Brain Injury Date of Onset of Diagnosis: 03/06/22 Previous speech therapy: Yes Results: Pt reports working on memory and word finding. Other Relevant Medical History/Diagnoses/Surgery: JEAN GUERRERO is a 26 year old male who presents to [facility] for a cognitive evaluation following a work injury. Pt accompanied by girlfriend. Pt is not currently driving. Pt was born in [place] and his first language is Cypriot. Pt with a high school education and had attended the [employer]. Jean worked for [employer] and fell 20 feet off of a work truck where he cracked open his skull. Pt was unconscious and was in a coma. Pt was sent to [facility] in [place] and life-flighted to [facility]. Pt recently discharged from [facility] where he received PT/ST, could not recall if he received OT. Pt reporting difficulty with letters, numbers, reading, spelling, and short term memory. Pt reporting he takes pictures of places he has been and dictates notes into his phone to help his memory. 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 Pt reporting social skills with having a filter is hard for him now and he upsets people sometimes. Pt reportedly enjoys working on trucks, driving around, and being outside. Medications related to this diagnosis: Buspar, gabapentin, valproic acid, Cialis, Ativan Smoking Status: Current every day smoker Hx Tobacco Use: No - Pain Is pain an issue with your current prescribed condition?: Yes - Personal Preferred language: Algerian - Cypriot is his First Language Education History: High School Right Hearing Abillity: Deaf - D/t TBI, not at baseline Patient Allergies - Allergies Allergies No Known Allergies Allergy (Verified 12/14/21 21:52) Cognitive Linguistic Comments - Comments Writing/Spelling Tasked Pt with writing his name in cursive and print with girlfriend reporting his performance was WNL. Pt tasked with writing his current address which he completed with 50% acc independently and benefited from mod verbal and visual cues to improve word finding and spelling errors. Girlfriend reporting Pt's spelling at baseline is not 100% but it is better than shown today. Pt showing difficulty spelling December when asked to write his birthday, he benefited from using the number representation instead. CLQT - CLQT CLQT Administered: Yes CLQT: Cognitive Linguistic Quick Test (CLQT) is a criterion - referenced assessment designed for adults between the ages of 18 and 89 with known or suspected neurological dysfuntions. The CLQT is to assess strength and weaknesses in five cognitive domains. Severity ratings are within normal limits, mild, moderate, severe deficits. The subtests are as follows: Date: 04/05/22 - Attention Attention: Moderate - Memory Memory: Severe - Executive Functions Executive Functions: Mild - Language Language: Moderate - Visuospatial Skills Visuospatial Skills: Mild - Composite Severity Rating Composite Severity Rating: Moderate - Clock Drawing Severity Rating Clock Drawing Severity Rating: WNL - CLQT Comments Qualitative Observations Pt reporting potential visual deficits on the R side - will be having a visual evaluation. If WNL, then Pt is demonstrating attention difficulties characterized by R side neglect. Pt demonstrating awareness of errors however had difficulty with problem solving the errors and benefited from mod verbal and logical cues. Pt easily distracted by noises outside of the room. Pt's language is non-specific and often trails off at the ends of phrases when he begins having word finding difficulties. Pt with poor control of foul language when frustrated. Subtest Scores ? Personal Facts (memory and language ability): 04/19 WNL. ? Symbol Cancellation (nonlinguistic task of visual attention and perception, integrity of the upper/lower quadrants of the left/right visual lott): 09/23 SEVERE. ? Confrontation Naming (aphasia, perseveration, verbosity): 05/22 score WNL however Pt demonstrating significant processing delays greater than 5 seconds for 70% of test items, which would rate him more conservatively at MOD-SEVERE. ? Clock Drawing (screening of all cognitive domains): . ? Story Retelling (memory and comprehension, arousal, attention, storage capacity, narrative skills): 11/19, with criterion cut off at 6, so would suspect a MOD deficit. ? Symbol Trails (nonlinguistic task to assess planning, self-monitoring, working memory, and visual attention, and impulsivity): 05/22 WNL however Pt demonstrating SEVERE difficulty with problem solving his error and how to fix it. ? Generative Naming (word retrieval skills, perseveration): 2/9 SEVERE. ? Design Memory (nonlinguistic task to assess visual discrimination & analysis, attention, and visual memory, impulsivity, perseveration): 2/6 SEVERE. ? Mazes (planning, mental flexibility, self-monitoring, visual discrimination, and impulsivity): 04/19 WNL. ? Design Generation (nonlinguistic task of creativity and mental flexibility): 12/23 with a criterion cut off of 6, so would suspect MILD deficit and would benefit from extended processing time Plan - Plan Plan: Will recommend Pt for weekly outpatient speech therapy to address mod- severe cognitive-linguistic impairment (R41.840 Moderate Attention and concentration deficit; R41.841 Moderately-Severe Cognitive communication deficit) characterized by deficits in immediate and short-term memory, word retrieval, attention, problem solving/reasoning, and safety awareness. Pt would benefit from training in compensatory strategies for recall and word retrieval, as well as cognitive training to improve cognitive functioning. Without skilled ST services, the Pt is at risk for decreased independence completing daily chantale ng tasks, returning to work, and returning to driving. - Recommendations Treatment Warranted: Yes Treatment Warranted: Receptive/ Expressive Language, Cognition, Social Pragmatic Communication Comment: Referring to Physical Therapy; Pt reporting concerns with his gait and is nervous about falling. Pt already scheduled for OT evaluation next week for his shoulder. - Progress Prognosis: Good - Frequency Frequency: 2x /Week Additional (Frequency): 60 min sessions, 2x/week Duration: 4 Months - Goal #1-5 Goal #1: Jean will complete basic to mod complex sustained, alternating, divided attention tasks with 90% acc independently across 3 measured opportunities. Goal #2: Jean will demonstrate use of word finding strategies to complete complex confrontation, convergent and divergent naming tasks with 85% acc independently across 3 measured opportunities to improve word retrieval. Goal #3: Jean will describe visual scenes with appropriate vocabulary in 4 or more sentences at 80% accuracy given minimum verbal and phonemic cues. Goal #4: Jean will complete basic to mod complex immediate, short-term, and working memory tasks with 80% acc independently across 3 measured opportunities. Goal #5: Jean will complete basic to mod complex problem solving/reasoning, time/money/math, and safety awareness tasks with 90% acc independently across 3 measured opportunities Education - Patient has Indicated that the Following Identified Educational Needs: None The Patient has indicated that they have no educational or learning abilities that may effect their care.: Yes - Patient Instruction Patient Education: Diagnosis, Treatment Plan, Goals Person Taught: Patient, Significant Other Teaching Method: Discussion, Demonstration Response to teaching: Return demonstration, Verbalize understanding, Reinforcement needed
--- NOTE | 2022-04-13 10:12 | HP.OTEVAL_ITS ---
Patient's Visit Information TERRELL GUERRERO is a 26 year old M, referred to Occupational Therapy by Dr. Jonny Caicedo MD, with a diagnosis of TBI. Date of Evaluation: 04/13/22 Occupational Therapist: Mary Pressley, OTR/Caitlin, CHT - Subjective This 26 year old male was seen for OT eval with dx of TBI. Pt is not currently driving. Pt was born in [place] and his first language is [place]. Pt with a high school education and had attended the [employer]. Terrell worked for [employer] and fell 20 feet off of a work truck where suffered a TBI. Pt was unconscious and was in a coma about 7 days per pt. Pt was sent to [facility] in [place] and life-flighted to [facility]. Pt recently discharged from [facility] where he received PT/ST, could not recall if he received OT. Pt reporting difficulty with letters, numbers, reading, spelling, and short term memory - has noticed difficulty with balance and feels something is wrong with his left shoulder and trying to see a orthopedic dr. . Pt reporting he takes pictures of places he has been and dictates notes into his phone to help his mem ory. 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 Pt reporting social skills with having a filter is hard for him now and he upsets people sometimes states he laughs at everything and at inappropriate times. Pt reportedly enjoys working on trucks, driving around, and being outside. pt is right hand pt states his left arm is more difficulty with movement -. pt has difficulty with balance that limits his functional mobility. pt would like to start feeling back to his old self and return to performing his daily tasks at IND. level - ADLs Dressing: Overhead shirt, Pants Fasteners: Tie shoes Eating: Bring food to mouth, Use silverware, Cut food Bathing: Handle washcloth & soap, Wash hair Comments: left side is more difficult Grooming: Squeeze toothpaste on, [place] teeth Kitchen: Peel fruits & vegetables, Open jars, Lift gallon of milk, Lift saucepan, Take dish out of oven, Place dish in microwave Comments: family doing all meal prep Household: Vacuum, Sweep/mop, Laundry Comments: family and friends are helping Comments: Pt states he living alone in a 1 story home- Mom/ friend have been staying with him as he is not to be left alone. has some difficulty with stairs so mom is helping with laundry- cooking and cleaning- - Pain right side of body 2 Pain Intensity Range: 2 - Objective pt ambulates with keeping left UE to his side - ROM Shoulder: right WNL left limited (painful) does not want to move it Elbow: right WNL left slow and makes shoulder hurt Forearm: right/left WNL ROM Comments: pt ambulates with keeping left UE to his side very guarded posturing - Strength Shoulder: right peak force 13# left NT pt refused due to increase pain Elbow: right peak force biceps 13# triceps 18# Lawn Mower Operator: right 25# left 25# Lateral Pinch: right 6# left 8# Tripod Pinch: right 4# left 8# Strength Comments: pt demo with generalized weakness of BUE - Sensation Sensation Comments: pt reports feeling off like being slower - Visual/Perceptual Skills Comments: see eye dr due to change in vision. right side will get double vision - Cognitive Skills Follows Directions: Yes Cognitive Comments: could not spell his sisters name. could not recall what his mom does. could not spell moms name - Nine Hole Peg Right: 41 sec. Left: 29 sec. - Quick DASH-Disab of Arm,Shoulder& Hand Quick DASH Score: 85.0000 - Goals Goal:: pt will demo a increase in BUE strength testing against peak force of 25# or greater by d/c. pt will demo a increase in bilateral grants officer strength to 65# or greater to return pt to PLOF by d.c Goal:: pt will demo a increase in left shoulder ROM to 145* to increase ind with dressing/bathing by d.c Goal:: pt will report no pain greater than 2/10 with use of bilateral UE for ADLs and IADLs by dc Goal:: pt will demo the ability to tie shoes ind by d.c Goal:: pt and family will report pt at a ARTI with bathing/dressing tasks with appropriate ad. eq. by d/c - Rehabilitation General Assessment: pt demo with weakness of right UE and significantly limited with left shoulder and wants an orthopedic dr. to look at it. pt is limited with ROM and strength of UB increasing need of assistance with his ADLs and IADLS. pt would benefit from skilled OT 2-3x a week for 8 weeks. pt demo understanding and agree to POC. Rehabilitation Potential: Good - Anticipated Interventions A/AAROM/PROM, Strengthening, Joint Protection/Energy Conservation, Ergonomic Education, Neuro Reeducation, Cognitive Skills, ADL Training, Education re assistive Equipment, Education re Diagnosis, Caregiver Training, Home Program - Visit Plan Frequency: 2-3x /Week Duration: 2 Months TEXT: Thank you for the opportunity to evaluate your patient. For Medicare and Medicare HMO plans, please review the plan of care and approve it. It will need to be FAXED BACK to us at [phone] for Medicare purposes. Please let me know if there are questions or concerns regarding this plan of care. Physician Signature: Date:
--- NOTE | 2022-05-05 10:56 | HP.PTEVAL_ITS ---
Patient's Visit Information TERRELL GUERRERO is a 26 year old M referred to Physical Therapy by Dr. Jonny Caicedo MD with a diagnosis of impingement syndrome of the L shoulder. Date of Evaluation: 05/05/22 Physical Therapist: CIELO Monreal - Visit Plan Frequency: 2-3x /Week Duration: 6 Weeks Plan: 2-3X/ week for progressive PROM, AAROm, AROM, scapular strength and postural exercises, RC strengthening, bicep strengthening with HEP and US or modalities as needed to decrease overall pain and inflammation. - Subjective Pt reports that he got into a work accident and fell off a work truck. He landed on his head and assumed that he landed on his shoulder next. He reports that he has been complaining of his L shoulder bothering him since his accident. He did not have L shoulder pain prior to the accident. He has been saying this since he got out of a coma. He had a brain injury that was 2 months ago. He is not allowed to work or drive etc at this point. This is all temporary at this point. He can not recall who he works for. He is R handed but it is his L shoulder. His L shoulder hurts in the front of his shoulder or if he lifts his L shoulder too high he gets a pinching in the middle of his L shoulder blade. They did an x-ray and did not show anything. He has some tingling in the L shoulder. He can not lay on his L shoulder and very unpleasant if roll onto the L shoulder. He has GUZMAN since the accident. He complains of some dizziness that is there about 50% of the time. - Pain L shoulder Pain Intensity (Out of 10): 0 Comment: with reaching his pain is 8-9/10 GUZMAN Pain Intensity (Out of 10): 7 - Objective R handed: R 65# and L 40#. R shoulder AROM: Flex ABD ER and IR (T8) are all WFL. L shoulder AROM: Flex 75 degrees, ABD 68 degrees, IR T 12, ER 29 degrees (pain with all motions). R shoulder MMT: Flex 9.2#, abd 8.3#, ER 13.3#, IR 8.4#. L shoulder MMT: flex 1#, abd 1.5#, ER 1.5#, and 9.9# and bicep 4-/5 with pain. Palpation: Tender under the L acromion to palpation and slight in bicep groove. Posture: sits with rounded posture and anterior GH shift in sitting (guarded position), L shoulder protraction on the L. PROM L shoulder: pain above approx 80 degrees elevation and beyond approx 30 degrees ER (pt has a very hard time relaxing and wincing in pain despite trying to get pt to relax to see true PROM of the shoulder). Painful end feel. + HK test for pain (just getting close to getting into test position increases his pain). Supine wand chest press increases the patients pain and he can not raise his L arm using the R and not able to straighten the L elbow. He can do some minor AAROM in supine ER 2 X 10. Discussed good posture and importance of getting the shoulder moving to increase blood flow and promote healing - Balance/Special Test Scores Quick DASH Score: 72.7250 - Goals Goal 1:: I HEP Goal Time Frame: 4-6 Weeks Goal 2:: Increase L shoulder AROM to 120 degrees elevation (flex/abd) with less than 2/10 pain Goal Time Frame: 4-6 Weeks Goal 3:: Increase L shoulder strength (at time of the eval his L shoulder strength was L shoulder MMT: flex 1#, abd 1.5#, ER 1.5#, and 9.9# and bicep 4- /5 with pain) Goal Time Frame: 4-6 Weeks Goal 4:: Sit with good posture and avoid the protracted and rounded shoulder position to help with good shoulder mechanics Goal Time Frame: 4-6 Weeks Goal 5:: Decrease overall L shoulder pain to 1/10 with overhead activities Goal Time Frame: 4-6 Weeks - Rehabilitation Potential Rehabilitation Potential: Good - Anticipated Interventions Patient/Client Instruction: Educate patient on: Condition, Plan of Care For the Purpose of:: To decrease pain, To decrease swelling/inflammation, To increase ROM, To improve nutrient delivery to tissue, To improve muscle performance and motor function, To improve ability to perform ADL's, To increase tolerance to activity/condition/position, To improve performance and independence with ADL's, To decrease level of supervision to perform tasks, To improve ability of physical actions for home/community/work/leisure, To improve health of tissue, To decrease soft tissue restriction, To increase flexibility/ROM Therapeutic Exercise to Include: Strength training, Endurance training, Body mechanics, Postural training, Flexibilty training, Passive ROM, Active ROM, Scapular Strength/Stabilization For the Purpose of:: To decrease pain, To decrease swelling/inflammation, To increase ROM, To improve nutrient delivery to tissue, To improve muscle performance and motor function, To improve ability to perform ADL's, To increase tolerance to activity/condition/position, To improve performance and independence with ADL's, To improve ability of physical actions for home/community/work/leisure, To improve health of tissue, To decrease soft tissue restriction, To increase flexibility/ROM Manual Therapy Techniques to Include: Mobilization, Passive ROM, Soft tissue mobilization For the Purpose of:: To decrease pain, To decrease swelling/inflammation, To increase ROM, To improve nutrient delivery to tissue, To improve muscle performance and motor function, To improve ability to perform ADL's, To increase tolerance to activity/condition/position, To improve performance and independence with ADL's, To decrease level of supervision to perform tasks, To improve ability of physical actions for home/community/work/leisure, To improve health of tissue, To decrease soft tissue restriction, To increase flexibility/ROM Cryotherapy (ice pack, ice massage): Yes Ultrasound (thermal/non thermal): Yes - PRN if allowed For the Purpose of:: To decrease pain, To decrease swelling/inflammation, To increase ROM, To improve nutrient delivery to tissue Thank you for the opportunity to evaluate your patient. For Medicare and Medicare HMO plans, please review the plan of care and approve it. It will need to be FAXED BACK to us at [phone] for Medicare purposes. For Medicare only, by signing this I certify the plan of care. Please let me know if there are questions or concerns regarding this plan of care. Physician Signature:_ Date:
--- NOTE | 2022-05-21 09:17 | HP.OTREVAL ---
Dr. Jonny Caicedo MD, It has been my pleasure to treat TERRELL GUERRERO over the last 10 visits for TBI. Please see the progress note below for an update on the occupational therapy plan of care! Subjective: Pt arrived on time; low mood, flat affect. He feels he has lost all the support he used to have (appears to be his peers per convo); He has his mom and a couple of her friends. Objective/Function: pt demo a right carton liner strength at 35# a increase from 25# left is 38# this is increase from initial at 25#. right lateral pinch 8# increase from 6#. left lateral pinch 12# a increase from 8#. right tripod pinch 6# a increase from 4#. left tripod pinch 8# this stayed the same from initial eval. 9hole peg test right 29sec. a decrease from 41sec. left testing at 26 sec a decrease from 36sec. pt states his mother is still helping with the cooking- not doing laundry or putting clothes away- pt states he did pick his own cloths today-. pt states he is ARTI with bathing. Pt states today he was IND with getting dressed-. pt continues to demo limited left UE ROM and weakness bilaterally decreasing ind. with ADLs and IADLs. pt would benefit from continued OT services 2-3 x week for next 8 weeks. Plan Frequency: 2-3x /Week Duration: 2 Months Visits in this POC: 12 Plan: Cont POC Goals - Goals Patient Goals: Regain Strength, Improve Fine Motor Skills, Use Hand/Wrist/Arm Normally Again, Be More Independent in ADLS Goal:: pt will demo a increase in BUE strength testing against peak force of 25# or greater by d/c progressing. pt will demo a increase in bilateral carton liner strength to 65# or greater to return pt to PLOF by d.c pt is making progress Goal:: pt will demo a increase in left shoulder ROM to 145* to increase ind with dressing/bathing by d.c pt making progress at 90* Goal:: pt will report no pain greater than 2/10 with use of bilateral UE for ADLs and IADLs by dc Goal:: pt will demo the ability to tie shoes ind by d.c. pt met goal Goal:: pt and family will report pt at a ARTI with bathing/dressing tasks with appropriate ad. eq. by d/c Anticipated Interventions Anticipated Interventions: A/AAROM/PROM, Strengthening, Joint Protection/Energy Conservation, Ergonomic Education, Neuro Reeducation, Cognitive Skills, ADL Training, Education re assistive Equipment, Education re Diagnosis, Caregiver Training, Home Program Please do not hesitate to contact me at [phone] by phone or if you have questions or concerns regarding this new plan of care! Sincerely, Mary Pressley, OTR/L, CHT
--- NOTE | 2022-06-01 14:37 | HP.PTREVAL_ITS ---
Dr. Jonny Caicedo MD, It has been my pleasure to treat TERRELL GUERRERO over the last 6 visits for impingement syndrome of the L shoulder. Please see the progress note below for an update on the physical therapy plan of care! Subjective: Pt. reports having 6-7/10 pain currently. I feel like the mobility is getting better, but still not great. He reports GUZMAN medication is not helping. Objective/Function: AROM: L shoulder: flexion 90deg increase in symptoms, abd 75deg increase in symptoms, functional IR T10 mild effect, functional ER external auditory meatus. PROM: flexion 125deg, abd 115deg, ER at 90deg 50deg, IR at 90deg 15deg. Increased pain as limiting factor with all passive and active rom. He continues to be very tender along biceps and anterior shoulder. MMT: L shoulder: flexion 7.1# increase NW, abd 9.1# increase NW, ER 8.9# increase NW, ext 10.5# increase NW, IR 9.7# increase NW. Pt. continues to have high levels of pain. He did have an MRI, but is unsure of results. Cont. to progress as tolerated. Progress pending MRI results. Plan Plan: 2-3X/ week for progressive PROM, AAROm, AROM, scapular strength and postural exercises, RC strengthening, bicep strengthening with HEP and US or modalities as needed to decrease overall pain and inflammation. Balance/Gait/Functional tests - Balance/Special Test Scores Quick DASH Score: 72.7250 Goals Goal 1:: I HEP Goal Time Frame: 4-6 Weeks Goal Progress: Progressing Goal 2:: Increase L shoulder AROM to 120 degrees elevation (flex/abd) with less than 2/10 pain Goal Time Frame: 4-6 Weeks Goal Progress: Progressing Goal 3:: Increase L shoulder strength (at time of the eval his L shoulder strength was L shoulder MMT: flex 1#, abd 1.5#, ER 1.5#, and 9.9# and bicep 4- /5 with pain) Goal Time Frame: 4-6 Weeks Goal Progress: Progressing Goal 4:: Sit with good posture and avoid the protracted and rounded shoulder position to help with good shoulder mechanics Goal Time Frame: 4-6 Weeks Goal Progress: Progressing Goal 5:: Decrease overall L shoulder pain to 1/10 with overhead activities Goal Time Frame: 4-6 Weeks Goal Progress: Not Progressing Anticipated Interventions Patient/Client Instruction: Educate patient on: Condition, Plan of Care For the Purpose of:: To decrease pain, To decrease swelling/inflammation, To increase ROM, To improve nutrient delivery to tissue, To improve muscle performance and motor function, To improve ability to perform ADL's, To increase tolerance to activity/condition/position, To improve performance and independence with ADL's, To decrease level of supervision to perform tasks, To improve ability of physical actions for home/community/work/leisure, To improve health of tissue, To decrease soft tissue restriction, To increase flexibility/ROM Therapeutic Exercise to Include: Strength training, Endurance training, Body mechanics, Postural training, Flexibilty training, Passive ROM, Active ROM, Scapular Strength/Stabilization For the Purpose of:: To decrease pain, To decrease swelling/inflammation, To increase ROM, To improve nutrient delivery to tissue, To improve muscle performance and motor function, To improve ability to perform ADL's, To increase tolerance to activity/condition/position, To improve performance and independence with ADL's, To improve ability of physical actions for belen e/community/work/leisure, To improve health of tissue, To decrease soft tissue restriction, To increase flexibility/ROM Manual Therapy Techniques to Include: Mobilization, Passive ROM, Soft tissue mobilization For the Purpose of:: To decrease pain, To decrease swelling/inflammation, To increase ROM, To improve nutrient delivery to tissue, To improve muscle performance and motor function, To improve ability to perform ADL's, To increase tolerance to activity/condition/position, To improve performance and independence with ADL's, To decrease level of supervision to perform tasks, To improve ability of physical actions for home/community/work/leisure, To improve health of tissue, To decrease soft tissue restriction, To increase flexibility/ROM Cryotherapy (ice pack, ice massage): Yes Ultrasound (thermal/non thermal): Yes - PRN if allowed For the Purpose of:: To decrease pain, To decrease swelling/inflammation, To increase ROM, To improve nutrient delivery to tissue Please do not hesitate to contact me at [phone] by phone or if you have questions or concerns regarding this new plan of care! Sincerely, Jaswant Jenkins DPT
--- NOTE | 2022-06-23 11:28 | HP.PTREVAL_ITS ---
Dr. Jonny Caicedo MD, It has been my pleasure to treat TERRELL GUERRERO over the last 11 visits for impingement syndrome of the L shoulder. Please see the progress note below for an update on the physical therapy plan of care! Subjective: Pt reports that he feels that he slept on his shoulder weird last night. He feels like he has more movement out of his shoulder but he can't raise his arm overhead. He can not sleep on it. He feels it is getting slightly better. Pt feels that his GUZMAN are not getting any better on this med. Pt feels that his shoulder is not getting much better and he feels like he should go back to his Dr. He feels PT helps each day a little but not much improvement. Pt is waking up in pain at night. Objective/Function: posture: sits with rounded shoulders. L shoulder MMT: (MMT: flex 4.4#, abd 5#, ER 7.4#, and IR 6.3# and bicep 1.1#). L shoulder AROM: flex 98 degrees, abd 90 degrees, IR T8 and ER 59 degrees Plan Plan: Pt is going to contact his Dr in regards to his slow progress with ROM and strength and very little progress with function and pain. 2-3X/ week for progressive PROM, AAROM, AROM, scapular strength and postural exercises, RC strengthening, bicep strengthening with HEP and US or modalities as needed to decrease overall pain and inflammation. Balance/Gait/Functional tests - Balance/Special Test Scores Quick DASH Score: 50.0000 Goals Goal 1:: I HEP Goal Time Frame: 4-6 Weeks Goal Progress: Progressing Goal 2:: Increase L shoulder AROM to 120 degrees elevation (flex/abd) with less than 2/10 pain Goal Time Frame: 4-6 Weeks Goal Progress: Progressing Goal 3:: Increase L shoulder strength (at time of the eval his L shoulder strength was L shoulder MMT: flex 1#, abd 1.5#, ER 1.5#, and 9.9# and bicep 4- /5 with pain) Goal Time Frame: 4-6 Weeks Goal Progress: Progressing Goal 4:: Sit with good posture and avoid the protracted and rounded shoulder position to help with good shoulder mechanics Goal Time Frame: 4-6 Weeks Goal Progress: Progressing Goal 5:: Decrease overall L shoulder pain to 1/10 with overhead activities Goal Time Frame: 4-6 Weeks Goal Progress: Not Progressing Anticipated Interventions Patient/Client Instruction: Educate patient on: Condition, Plan of Care For the Purpose of:: To decrease pain, To decrease swelling/inflammation, To increase ROM, To improve nutrient delivery to tissue, To improve muscle performance and motor function, To improve ability to perform ADL's, To increase tolerance to activity/condition/position, To improve performance and independence with ADL's, To decrease level of supervision to perform tasks, To improve ability of physical actions for home/community/work/leisure, To improve health of tissue, To decrease soft tissue restriction, To increase flexibility/ROM Therapeutic Exercise to Include: Strength training, Endurance training, Body mechanics, Postural training, Flexibilty training, Passive ROM, Active ROM, S capular Strength/Stabilization For the Purpose of:: To decrease pain, To decrease swelling/inflammation, To increase ROM, To improve nutrient delivery to tissue, To improve muscle performance and motor function, To improve ability to perform ADL's, To increase tolerance to activity/condition/position, To improve performance and independence with ADL's, To improve ability of physical actions for home/community/work/leisure, To improve health of tissue, To decrease soft tissue restriction, To increase flexibility/ROM Manual Therapy Techniques to Include: Mobilization, Passive ROM, Soft tissue mobilization For the Purpose of:: To decrease pain, To decrease swelling/inflammation, To increase ROM, To improve nutrient delivery to tissue, To improve muscle performance and motor function, To improve ability to perform ADL's, To increase tolerance to activity/condition/position, To improve performance and independence with ADL's, To decrease level of supervision to perform tasks, To improve ability of physical actions for home/community/work/leisure, To improve health of tissue, To decrease soft tissue restriction, To increase flexibility/ROM Cryotherapy (ice pack, ice massage): Yes Ultrasound (thermal/non thermal): Yes - PRN if allowed For the Purpose of:: To decrease pain, To decrease swelling/inflammation, To increase ROM, To improve nutrient delivery to tissue Please do not hesitate to contact me at [phone] by phone or Fax: if you have questions or concerns regarding this new plan of care! Sincerely, Maeve Fuller, MPT
--- NOTE | 2022-06-29 10:21 | HP.OTREVAL ---
Dr. Jonny Caicedo MD, It has been my pleasure to treat TERRELL GUERRERO over the last 17 visits for TBI. Please see the progress note below for an update on the occupational therapy plan of care! Subjective: Pt stated he went to [facility] over the weekend with his friend. Pt stated he likes to ski; but does not feel like he will be able to this year. Pt stated that is not listening to him about medication for headaches; may just stop taking them. Pt stated that baths feel good; but heat packs have not. Does use ice after exercise. Objective/Function: pt demo a right trolley cleaner strength at 45# a increase from 25# left is 25# same as initial at 25#. right lateral pinch 8.5# increase from 6#. left lateral pinch 12# a increase from 8#. right tripod pinch 5# a increase from 4#. left tripod was only 3# was 8# at initial eval. 9hole peg test right 32 sec. a decrease from 41sec. left testing at 31 sec a decrease from 36sec original. pt states his mother is still helping with the cooking- not doing laundry or putting clothes away- pt states he did pick his own cloths today-. pt states he is ARTI with bathing. Pt states today he was IND with getting dressed-. pt continues to demo limited left UE ROM and weakness bilaterally decreasing ind. with ADLs and IADLs. pt would benefit from continued OT services 2-3 x week for next 8 weeks. Plan Frequency: 2-3x /Week Duration: 2 Months Visits in this POC: 24 Plan: Cont POC Goals - Goals Patient Goals: Regain Strength, Improve Fine Motor Skills, Use Hand/Wrist/Arm Normally Again, Be More Independent in ADLS Goal:: pt will demo a increase in BUE strength testing against peak force of 25# or greater by d/c progressing. pt will demo a increase in bilateral trolley cleaner strength to 65# or greater to return pt to PLOF by d.c pt is making progress Goal:: pt will demo a increase in left shoulder ROM to 145* to increase ind with dressing/bathing by d.c pt making progress at 90* Goal:: pt will report no pain greater than 2/10 with use of bilateral UE for ADLs and IADLs by dc Goal:: pt will demo the ability to tie shoes ind by d.c. pt met goal Goal:: pt and family will report pt at a ARTI with bathing/dressing tasks with appropriate ad. eq. by d/c Anticipated Interventions Anticipated Interventions: A/AAROM/PROM, Strengthening, Joint Protection/Energy Conservation, Ergonomic Education, Neuro Reeducation, Cognitive Skills, ADL Training, Education re assistive Equipment, Education re Diagnosis, Caregiver Training, Home Program Please do not hesitate to contact me at [phone] by phone or if you have questions or concerns regarding this new plan of care! Sincerely, Mary Pressley, OTR/L, CHT
--- NOTE | 2022-08-30 11:56 | OTREVAL_ITS ---
Dr. Jonny Caicedo MD, It has been my pleasure to treat TERRELL GUERRERO over the last 30 visits for TBI. Please see the progress note below for an update on the occupational therapy plan of care! Subjective: pt arrives from Speech therapy- pt states he is doing ok- still having trouble tracking things- remembering orientation of days and time. still can not drive feels shoulder is still messed up. pt reports he is performing his HEP. Objective/Function: pt demo with right shoulder flexion WNL. left shoulder flexion 100* (getting PT for this shoulder). pt demo full ROM of bilateral elbows and forearm sup/pronation. pt demo with a right communication and outreach manager strength 20# this is a decrease from 45# and left at 15#. pts pinch strength also decreased. therapist asked pt if he was doing his HEP and he states he is. Not sure why loss of strength is noted in communication and outreach manager and pinch-. Therapy will continue to increase resistance for next two weeks and see if there is a turn around. Plan Frequency: 2-3x /Week Duration: 3 Weeks Visits in this POC: 48 Plan: will work on increasing resistance and transition pt to gym eq. as tolerated Goals - Goals Patient Goals: Regain Strength, Improve Fine Motor Skills, Use Hand/Wrist/Arm Normally Again, Be More Independent in ADLS Goal:: pt will demo a increase in BUE strength testing against peak force of 25# or greater by d/c progressing. pt will demo a increase in bilateral communication and outreach manager strength to 65# or greater to return pt to PLOF by d.c pt is making progress Goal:: pt will demo a increase in left shoulder ROM to 145* to increase ind with dressing/bathing by d.c pt making progress at 90* Goal:: pt will report no pain greater than 2/10 with use of bilateral UE for ADLs and IADLs by dc Goal:: pt will demo the ability to tie shoes ind by d.c. pt met goal Goal:: pt and family will report pt at a ARTI with bathing/dressing tasks with appropriate ad. eq. by d/c Anticipated Interventions Anticipated Interventions: A/AAROM/PROM, Strengthening, Joint Protection/Energy Conservation, Ergonomic Education, Neuro Reeducation, Cognitive Skills, ADL Training, Education re assistive Equipment, Education re Diagnosis, Caregiver Training, Home Program Please do not hesitate to contact me at [phone] by phone or if you have questions or concerns regarding this new plan of care! Sincerely, Mary Pressley OTR/L, CHT
== END 2022-09-01 19:00 | disposition home or self-care (01) ==
LOC: PT 10:30
PROVIDERS: PCP Internal Medicine; Referring Provider Physical Medicine & Rehabilitation; Visit Provider Physical Medicine & Rehabilitation
DX: S06.9X0D Unspecified intracranial injury without loss of consciousness, subsequent encounter (principal)
CPT/HCPCS: 92507; 97110; 97129; 97130; 97140; 97161; 97164; 97166; 97530

== ENCOUNTER → 2022-10-22 | Outpatient (CLI) | payer MEDICAID, SELFPAY | END | disposition home or self-care (01) | PROVIDERS: PCP Internal Medicine; Referring Provider Psychiatry & Neurology Neurology; Visit Provider Psychiatry & Neurology Neurology | DX: G47.10 Hypersomnia, unspecified (principal); S06.9X9A Unspecified intracranial injury with loss of consciousness of unspecified duration, initial encounter; F51.4 Sleep terrors [night terrors]; X58.XXXA Exposure to other specified factors, initial encounter | CPT/HCPCS: 95810 ==

== ENCOUNTER → 2022-11-12 | Outpatient (CLI) | payer MEDICAID, OTHER, SELFPAY ==
[2022-11-12 12:10] LABS: Hematocrit 49.3 % (40-54); Hemoglobin 16.3 g/dL (13.0-16.5); Mean Corp Hgb Conc 33.1 g/dL (32-36); Mean Corpuscular Hgb 29.9 pg (27.0-32.0); Mean Corpuscular Volume 90.5 fL (80-94); Mean Platelet Vol. 9.9 fl (6.2-12.0); Platelet Count 340 K/mm3 (150-450); RBC Distribution Width CV 12.4 % (11.6-14.6); RBC Distribution Width SD 40.9 fl (35.1-43.9); Red Blood Count 5.45 M/mm3 (4.6-6.2); White Blood Count 8.1 K/mm3 (4.4-11.0)
[2022-11-12 12:35] LABS: Vitamin B12 438 pg/mL (211-911)
[2022-11-12 13:02] LABS: ALB/GLOB Ratio 1.2 RATIO (0.9-2.4); AST(SGOT) 14 U/L (15-37); Alanine Aminotransfer ALT/SGPT 20 U/L (16-61); Albumin, Serum 4.5 g/dL (3.2-5.0); Alkaline Phosphatase 72 U/L (45-117); Anion Gap 9 (5-15); BUN 20 mg/dL (7-18); Calcium,Total 9.3 mg/dL (8.5-10.1); Chloride 108 mmol/L (98-107); Creatinine, Serum 1.05 mg/dL (0.70-1.30); EST Glomerular Filtration Rate 91 mL/min (>60); Est Glom Filt Rate - Afr Amer 110 mL/min (>60); Globulin 3.7 g/dL (2.2-4.2); Glucose 114 mg/dL (74-106); Magnesium 1.9 mg/dL (1.6-2.6); Potassium 4.1 mmol/L (3.5-5.1); Protein, Total 8.2 g/dL (6.4-8.2); Sodium Level 140 mmol/L (136-145); Thyroid Stim Hormone (TSH) 0.65 uIU/mL (0.358-3.74)
== END | disposition home or self-care (01) ==
LOC: MTLAB 11:00
PROVIDERS: PCP Internal Medicine; Referring Provider Psychiatry & Neurology Neurology; Visit Provider Psychiatry & Neurology Neurology
DX: S06.9X9A Unspecified intracranial injury with loss of consciousness of unspecified duration, initial encounter (principal); F25.9 Schizoaffective disorder, unspecified; F41.9 Anxiety disorder, unspecified; R41.89 Other symptoms and signs involving cognitive functions and awareness
CPT/HCPCS: 36415; 80053; 82607; 82746; 83735; 84425; 84443; 85027

== ENCOUNTER 2022-12-27 09:46 | Outpatient (RCR) | payer MEDICAID, OTHER, SELFPAY ==
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
--- NOTE | 2022-12-27 15:30 | HP.OTFCE.D ---
FCE D/C Summary - Discharge TERRELL GUERRERO was seen for a one time visit for an FCE on 12/27/22 and is discharged.
== END 2022-12-27 19:00 | disposition home or self-care (01) ==
LOC: OT 09:46
PROVIDERS: PCP Internal Medicine; Referring Provider Internal Medicine; Visit Provider Internal Medicine
DX: M75.42 Impingement syndrome of left shoulder (principal); G44.311 Acute post-traumatic headache, intractable; Z87.820 Personal history of traumatic brain injury
CPT/HCPCS: 97750

== ENCOUNTER 2023-01-21 11:30 | Outpatient (RCR) | payer MEDICAID, SELFPAY ==
--- NOTE | 2022-10-04 11:42 | HP.PTREVAL_ITS ---
Dr. Jonny Caicedo MD, It has been my pleasure to treat TERERLL GUERRERO over the last 16 visits for Impingement of the L shoulder. Please see the progress note below for an update on the physical therapy plan of care! Subjective: Pt had a cortizone shot 6 weeks ago and he has more ROM but his pain is about the same. He does have a torn tendon and Dr wants him to have surgery but he does not want the long recovery. He feels that PT is helping comparing to when he first got here. He sees the Dr in November again. Dr said to do PT until he sees him again. Pt has increase pain when raising hand overhead to do activites (6/10 pain) and still gets dizzy. Objective/Function: L shoulder flex AROM to 102 degrees with some slight pain. L shoulder ABD AROM to 101 degrees with some slight pain. MMT: L shoulder flex 6.1# and L shoulder abd 8.3#, L ER 11# and L IR 9#. Posture remain slouched with rounded shoulders Plan Plan: 2X/ week for end range AROM, stretching, POSTURAL exercises, RC strength. Please give HEP Balance/Gait/Functional tests - Balance/Special Test Scores Quick DASH Score: [phone] Goals Goal 1:: I HEP Goal Time Frame: 12-16 Weeks Goal 2:: Increase L shoulder AROM to 120 degrees elevation (flex/abd) with less than 2/10 pain Goal Time Frame: 12-16 Weeks Goal Progress: Progressing Goal 3:: Increase L shoulder strength (at time of the eval his L shoulder strength was L shoulder MMT: flex 1#, abd 1.5#, ER 1.5#, and 9.9# and bicep 4- /5 with pain) Goal Time Frame: 12-16 Weeks Goal Progress: Progressing Goal 4:: Sit with good posture and avoid the protracted and rounded shoulder position to help with good shoulder mechanics Goal Time Frame: 12-16 Weeks Goal 5:: Decrease overall L shoulder pain to 1/10 with overhead activities Goal Time Frame: 8-12 Weeks Anticipated Interventions Please do not hesitate to contact me at [phone] by phone or if you have questions or concerns regarding this new plan of care! Sincerely, Maeve Fuller, CIELO
--- NOTE | 2022-10-08 08:22 | HP.SPREEV_ITS ---
History - History Date of Eval: 04/05/22 Smoking Status: Former smoker Hx Tobacco Use: No - Pain Is pain an issue with your current prescribed condition?: Yes Patient Allergies - Allergies Allergies Seasonal Allergies: Uncoded Allergy (Mild, Verified 07/05/22 13:41) Other cat dander Allergy (Verified 07/05/22 13:45) Other Previous/Current Goals - Goals 1-5 Previous Goal #1: Jean will complete basic to mod complex sustained, alternating, divided attention tasks with 90% acc independently across 3 measured opportunities. Goal 1 Status: GOAL PROGRESSING: During a 60 min session, Pt often benefiting from 4-6 redirection cues to remain on task after trailing off to a different topic of conversation - Pt with limited awareness. Pt completing complex attention task via alternating attention between color and number via following a list of colors with 33% acc independently before noticing an error and asking to start over. Pt completing restarted task with initial 66% acc and with supervision Pt noticing error - after correcting Pt finished with 100%. Pt comp leted alternating attention and sustained attention task via 1 step (+5) numerical sequence task with 95% acc independently, however when complexity of task increases to 2 steps (x2, -3, x2, -3), Pt performs task with 52% acc independently and benefited from min verbal and logical cues to improve to 100% acc. Previous Goal #2: Jean will demonstrate use of word finding strategies to complete complex confrontation, convergent and divergent naming tasks with 85% acc independently across 3 measured opportunities to improve word retrieval. Goal 2 Status: GOAL MET: Pt completed confrontation naming task via labeling black and white photos with 88% acc (55/60) with 3 semantic paraphasias. Pt completes word challenge task via unscrambling a group of letters that formed 2 words associated with a clue with 75% acc independently and benefited from min semantic cues to improve acc to 100%. Previous Goal #3: Jean will describe visual scenes with appropriate vocabulary in 4 or more sentences at 80% accuracy given minimum verbal and phonemic cues. Goal 3 Status: GOAL MET: Pt participated in complex conversation re: politics and life events with 1-2 instances of word finding difficulties however appeared with fluent expressive language. Often times it appears Pt will venture off topic where his words are not related to what the original conversation topic was -- this may be d/t Pt's moderate attention deficits. Previous Goal #4: Jean will complete basic to mod complex immediate, short- term, and working memory tasks with 80% acc independently across 3 measured opportunities. Goal 4 Status: GOAL STAGNANT: Pt completed immediate memory task via recall of appt details after reviewing the appt card for 5 min and writing down the information with 20% acc independently and benefiting from max verbal and logical cues to improve acc to 40%. Pt completed short-term memory task via recall of the same questions as previously asked following a 15 min delay with 50% acc independently and benefited from mod verbal cues to improve acc to 70%. Pt completed immediate recall of 12 visually presented pictures following encoding for 2 minutes with no distractions with 75% acc (9/12) and benefited from independent use of strategies via grouping similar pictures together (fruits, transportation, furniture). Pt benefited from multiple choice options to improve acc to 100%. Pt completed short-term memory task via repetition of the 12 pictures across a 10 minute delay with 91% acc (11/12) and benefited from mod semantic cues to improve to 100%. Previous Goal #5: Jean will complete basic to mod complex problem solving/reasoning, time/money/math, and safety awareness tasks with 90% acc independently across 3 measured opportunities Goal 5 Status: GOAL WITH SLOW PROGRESSION: Pt participated in administration of the orientation-log (O-LOG) which he scored a 30/30. Pts demonstrating full orientation score 27/30 across 3 sessions - a/o 08/09/22 Pt met 3/3 sessions consecutively since the initiation of tx in March. Pt participates in administration of the COG-LOG where he consistently scores between 13-17 out of 30. Pt having difficulty with immediate and delayed address repetition, 30 seconds estimation, and months forward and reverse. Pts demonstrating cognition WNL will have a 27 or higher across 3 sessions. CLQT - CLQT CLQT Administered: Yes CLQT: Cognitive Linguistic Quick Test (CLQT) is a criterion - referenced assessment designed for adults between the ages of 18 and 89 with known or suspected neurological dysfuntions. The CLQT is to assess strength and weaknesses in five cognitive domains. Severity ratings are within normal limits, mild, moderate, severe deficits. The subtests are as follows: Date: 08/16/2022 - Attention Attention: Moderate - Memory Memory: Severe - Executive Functions Executive Functions: WNL - Language Language: Severe - Visuospatial Skills Visuospatial Skills: Moderate - Composite Severity Rating Composite Severity Rating: Moderate - Clock Drawing Severity Rating Clock Drawing Severity Rating: WNL - CLQT Comments 04/05/2022 Testing vs. 08/16/2022 Testing Date 04/05/2022. Cognitive Domain Scores: Attention = 82 (Moderate); Memory = 96 (Severe); Executive Functioning = 23 (Mild); Language = 22 (Moderate); Visuospatial Skills = 56 (Mild); Clock Drawing = 13 (WNL). Date 08/16/2022. Cognitive Domain Scores: Attention = 61 (Moderate); Memory = 82 (Severe); Executive Functioning = 24 (WNL, however on the cut off between WNL and Mild); Language = 20.5 (Severe); Visuospatial Skills = 45 (Moderate); Clock Drawing = 1 3 (WNL) CLQT Re-Eval - Testing Results CLQT Test Comparison: Comparisons between both testing dates reveal Pt has been stagnant or has lost skill in his recovery process despite skilled intervention. See above for progress on goals targeted in therapy. Pt meeting 2 goals with another being stagnant, the other still progressing, and another with significantly slow progression (>4 months). Pt often not challenging himself at home, so progress and carryover from week to week is minimal. 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 Plan - Plan Plan: Will recommend Pt for weekly outpatient speech therapy to address mod- severe cognitive impairment characterized by deficits in immediate and short- term memory, word retrieval, executive functioning, attention, problem solving/reasoning, and safety awareness. Pt would benefit from training in compensatory strategies for recall and word retrieval, as well as cognitive training to improve cognitive functioning. Without skilled ST services, the Pt is at risk for decreased independence completing daily living tasks. - Recommendations Treatment Warranted: Yes Treatment Warranted: Receptive/ Expressive Language, Cognition - Progress Prognosis: Good - Frequency Frequency: 1-2x /Week Additional (Frequency): 60 minute fading to 30 minute appts. Duration: 4 Months - Goals that are Established Determination:: Goals will be added/modified as deemed necessary and appropriate. Therapy will be discontinued when results of re-evaluation indicate therapy is no longer needed or lack of progress has been documented. - Goal #1-5 Goal #1: Jean will complete basic to mod complex alternating and divided attention tasks with 80% acc with min cues across 3 measured opportunities. Goal #2: Jean will maintain sustained attention to a basic to mod complex task with less than 3 redirection cues during a 30 minute timeframe. Goal #3: Jean will modify environment at home via implementing memory, problem solving, and executive functioning compensatory strategies within 2 months of this POC with the help of family and friends. Goal #4: Jean will complete basic to mod complex problem solving, planning, organizing, and sequencing tasks with 80% acc with min cues across 3 measured opportunities.
--- NOTE | 2023-01-03 10:16 | HP.OTDCSUM ---
It has been my pleasure to treat TERRELL GUERRERO under orders from Dr. Jonny Caicedo MD, for the diagnosis of TBI for a total of 19 visit(s). Please see the following information for a summary of their discharge status. % Improvement: 75 Objective/Function: Range Technician- R 40#, L- 25#. Tripod- R 7#, L-5#. Lateral- R 8# L-6#. Tip to Tip R 6#, L-5#. 9HPT- R-31.40 sec , L- 38.41 sec. Pt has made some good gains towards ARTI with ADLs and IADLs. pt has returned to living IND in his home. pt met goal of increase shoulder flexion to WFL ( pt has pain with tasks but is now seeing PT for his left shoulder). pts left sales and events coordinator strength did not consistently improve and had sales and events coordinator variations from 35# to 25#. : Fit2 resistive testing. right shoulder flexion 10# left 11#. right shoulder extension 17# left 17#. right biceps 26# left 22# right triceps 16# left 19#. pt is advised to continue with PRE as tolerated. At this time pt is d/c from OT. will continue with PT for left shoulder as they feel fit. Patient Goals: Decrease Pain, Be More Independent in ADLS Goal:: Goal:: pt will demo a increase in BUE strength testing against peak force of 25# or greater by d/c. pt will demo a increase in bilateral sales and events coordinator strength to 65# or greater to return pt to PLOF by d.c. Goal:: pt will demo a increase in left shoulder ROM to 145* to increase ind with dressing/bathing by d.c (Goal Met). Goal:: pt will report no pain greater than 2/10 with use of bilateral UE for ADLs and IADLs by dc (goal met). Goal:: pt will demo the ability to tie shoes ind by d.c (goal met but pt does not wear tie shoes). Goal:: pt and family will report pt at a ARTI with bathing/dressing tasks with appropriate ad. eq. by d/c ( goal met) Plan: D/C d/t PT also working on hand/arm strengthening when doing shoulder. Discharge Comments: pt initiated OT in 2021 following a TBI. pt has made increase gains in his ROM and is demo a functional strength to [facility]. his ADLs and IADLs as pt reports he is IND and has returned to living at home. pt continues to struggle with cognitive issues that speech addresses. Pt has completed OT and a FCE assessment. Pt was advised to continue with his HEP to continue to improve strength pt agrees with POC and D/C. If there are questions or concerns regarding this patient's occupational therapy, please fell free to call me at [phone]. Thank you for the referral of this patient. Sincerely, Mary Pressley, OTR/L, CHT
--- NOTE | 2023-01-03 10:59 | HP.PTREVAL_ITS ---
Dr. Jonny Caicedo MD, It has been my pleasure to treat TERRELL GUERRERO over the last 35 visits for Impingement of the L shoulder. Please see the progress note below for an update on the physical therapy plan of care! Subjective: He is supposed to get a cortizone shot soon or a surgery. He really does not want surgery. He feels that his shoulder is better. He feels that it is better than what it was. He can actually move his shoulder now. His cortizone shot only last about 1.5 months. Pt wants to go back to work but Dr said he needs a psyc eval and wont go back until at least March 2024. He is getting a new primary care Dr. Objective/Function: L shoulder AROM flexion 95 on first attempt and second attempt was 102 degrees (pt reports that he can not go any higher), and abduction 102 degrees. L shoulder MMT: flex 6.5#, abd 6.4#, ER 10.2#, and IR 9.9# and bicep 4/5 with pain). Posture: Slouched shoulders and rounded shoulders. Plan Plan: Pt will go back to for a cortizone shot and then will come back after to try and push PROM.AROM..... some strength after ROM. 2x/week for end range AROM, stretching, POSTURAL exercises, RC strength, HEP. Balance/Gait/Functional tests - Balance/Special Test Scores Quick DASH Score: 9.0900 Goals Goal 1:: I HEP Goal Time Frame: 12-16 Weeks Goal 2:: Increase L shoulder AROM to 120 degrees elevation (flex/abd) with less than 2/10 pain Goal Time Frame: 12-16 Weeks Goal Progress: Not Progressing Goal 3:: Increase L shoulder strength (at time of the eval his L shoulder strength was L shoulder MMT: flex 1#, abd 1.5#, ER 1.5#, and 9.9# and bicep 4- /5 with pain) Goal Time Frame: 12-16 Weeks Goal Progress: Not Progressing Goal 4:: Sit with good posture and avoid the protracted and rounded shoulder position to help with good shoulder mechanics Goal Time Frame: 12-16 Weeks Goal Progress: Not Progressing Goal 5:: Decrease overall L shoulder pain to 1/10 with overhead activities Goal Time Frame: 8-12 Weeks Goal Progress: Not Progressing Anticipated Interventions Please do not hesitate to contact me at [phone] by phone or if you have questions or concerns regarding this new plan of care! Sincerely, Maeve Fuller, MPT
--- NOTE | 2023-01-17 15:20 | HP.PTDCSUM_ITS ---
It has been my pleasure to treat TERRELL GUERRERO referred by Dr. Jonny Caicedo MD, with the diagnosis of Impingement of the L shoulder for a total of 36 visit(s). Discharge Date: 01/17/23 Please see the following information for a summary of their discharge status. Subjective: He got a cortizone shot by the Dr. and he agrees that PT is probably not making that big of a deal. He reports that the shot is making the L shoulder better. The Dr said he can get a shot every 3 months. 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 Pt does not want any additional Measurements today cause he does not want to mess with the shot. He agrees that 40% better is still where he is at. L shoulder Pain Intensity (Out of 10): 6 % Improvement: 40 Objective/Function: With Permission from Pt these measurements were carried over from -24 as pt did not want to remeasure his shoulder. L shoulder AROM flexion 95 on first attempt and second attempt was 102 degrees (pt reports that he can not go any higher), and abduction 102 degrees. L shoulder MMT: flex 6.5#, abd 6.4#, ER 10.2#, and IR 9.9# and bicep 4/5 with pain). Posture: Slouched shoulders and rounded shoulders. Goal 1:: I HEP Goal Progress: Goal Met Goal 2:: Increase L shoulder AROM to 120 degrees elevation (flex/abd) with less than 2/10 pain Goal Progress: Not Progressing Goal 3:: Increase L shoulder strength (at time of the eval his L shoulder strength was L shoulder MMT: flex 1#, abd 1.5#, ER 1.5#, and 9.9# and bicep 4- /5 with pain) Goal Progress: Not Progressing Goal 4:: Sit with good posture and avoid the protracted and rounded shoulder position to help with good shoulder mechanics Goal Progress: Not Progressing Goal 5:: Decrease overall L shoulder pain to 1/10 with overhead activities Goal Progress: Not Progressing Plan: DC PT to HEP and physician for 3 month cortizone shots. Discharge Comments: DC PT back to physician care If there are questions or concerns regarding this patient's physical therapy, please feel free to call me at [phone]. Thank you for the referral of this patient. Sincerely, Maeve Fuller, MPT Balance/Gait/Functional tests - Balance/Special Test Scores Quick DASH Score: 9.0900
--- NOTE | 2023-03-23 15:03 | HP.SP.DC ---
ST Discharge Summary Discharged: Discharge: Jean Ovalle is discharged from speech therapy at [facility] as of 03/23/23 due to no further visited scheduled by the patient. He was treated twice weekly for cognitive deficits following a TBI. His report in September stated : Comparisons between both testing dates reveal Pt has been stagnant or has lost skill in his recovery process despite skilled intervention. See above for progress on goals targeted in therapy. Pt meeting 2 goals with another being stagnant, the other still progressing, and another with significantly slow progression (>4 months). Pt often not challenging himself at home, so progress and carryover from week to week is minimal. 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 Sessions were reduced to weekly. Progress remained limited and the patient reported that he does not have any home activities to complete. Patient requested a new therapy and completed only one session with myself with more sessions requested to be scheduled by the patient. He did not schedule any further visits. Please refer to daily noted and reports for complete details. Thank you for allowing me to participate in the care of this patient.
== END 2023-01-21 19:00 | disposition home or self-care (01) ==
LOC: SP 11:30
PROVIDERS: PCP Internal Medicine; Referring Provider Physical Medicine & Rehabilitation; Visit Provider Physical Medicine & Rehabilitation
DX: M75.42 Impingement syndrome of left shoulder (principal); S46.112D Strain of muscle, fascia and tendon of long head of biceps, left arm, subsequent encounter
CPT/HCPCS: 92507; 97014; 97110; 97129; 97130; 97140; 97530; G0283

== ENCOUNTER → 2023-03-23 | Outpatient (CLI) | payer MEDICAID, SELFPAY | END | disposition home or self-care (01) | PROVIDERS: PCP Internal Medicine; Referring Provider Psychiatry & Neurology Neurology; Visit Provider Psychiatry & Neurology Neurology | DX: S06.9X9A Unspecified intracranial injury with loss of consciousness of unspecified duration, initial encounter (principal); X58.XXXA Exposure to other specified factors, initial encounter; R42 Dizziness and giddiness; R55 Syncope and collapse | CPT/HCPCS: 95819 ==

== ENCOUNTER 2023-06-28 12:30 | Outpatient (RCR) | payer OTHER, MEDICAID, SELFPAY ==
--- NOTE | 2023-04-22 15:58 | HP.PTEVAL_ITS ---
Patient's Visit Information Visit Information Visit Information: TERRELL GUERRERO is a 27 year old M referred to Physical Therapy by Dr. Jeramie Collier MD with a diagnosis of L impingement syndrome shoulder, TBI. Date of Evaluation: 04/22/23 Physical Therapist: Milan Mitchell, DPT, OCS, CSCS Visit Plan Frequency: 2-3x /Week Duration: 4-6 Weeks Plan: Recommend patient f/u with shoulder specialist to see if other interventions are necessary based on his history and lack of significant improvement adn positve tests for tears in L shoulder which he says is his main problem. In the absence of other interventions from specialist, 2x/week for 4-6 weeks of therapy woudl be appropriate to work on ROM, strengthening posture and shoulder and work to I [employer] program. Interventions ...G-h mobs grade 4 for IR adn abd/flexion L shoulder, distraction. PROM L shoulder into new range. Teach postural and RC strength for HEP with band and eventual upper body strength for [employer]. pec stretches, postural correction. Subjective Subjective: I had a fall a year ago at work and landed on concrete on head and shoulder and has L shoulder impingement. Had therapy for his shoulder and was 40% . Was in [place] at first and walking is better. Insurance reasons stopped him from coming into PT. L shoulder hurts and has had cortisone shots 3 months ago by [place] and referred to specialist which he will see next week. Pain in shoulder is worse with use 7/10 and then avoids lifting. It has a general achy ness 5/10 , lifting or stretching worse to 7/10. Hard to reach into cupboards. Is R handed. He is sleeping on R side but hurts to roll to L. Seen neurologist [place] for [facility] which are daily frontal and L side throbs. Up to 8/10, loud noises make it worse. No spinning dizzyness lately. lost hearing in R ear. roaring in ears. Walking is pretty good, no AD needed, feels like limps at times. Cannot run. Lives with mom, one story house, Up a stoop which is no problem. Basic ADLS are I. 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 Hobbies: likes old cars Has girlfriend, hangs with friends. Tries to go to [employer] with light exercises: 30 minute room. Pain L shouldeer: Pain Intensity (Out of 10): 5 Pain Intensity Range: 5 and 8 Objective Objective: Pt walks into PT with good balance, slightly wide LEANDER but I. steps are reciprocal without rail and I. Pt is slow to make decisions and has obvious memory, mostly short term concerns for which he is in speech along with being foggy and wanting to stay in bed alot subjectively. Posture is forward head and protracted scapula. Pt is hunched over and kyphotic in T/S . Max tender over L anterior shoulder in biceps groove and hesitant to straighten elbow although it has full ROM PROM. Cervical aROM WFL adn without pain. Can fix posture with VC. LE AROM WFL with some minor tightness in HS and gastroc. strength is 4-/5 in LE without myotomal or asymmetries side to side. Fucntional strength. 2/3 patella and achilles reflexes, Sensation is WNL to gross light touch in LE. R UE AROM WFL and strength shoulder adn elbow and wrist at 4-/5. L UE AROM limited at shoulder to 88 degrees AROM and to PSIS barely IR. ER to 65 degrees with slight pain, IR hurts, abduction to 80 degrees. PROM to 90 flexion and 88 abduction limited by pain and very stiff firm endfeel. IR to 35 wtih stiff end feel. er to 70. Muscle spasms and stopped PROM qucikly with elevation due to poor tolerance of pain. sensation in UE WNL to gross light touch. reflexes bi and tri 2/3 B. + HK, + neer, - ext rotation lag test, + drop arm test all on L. Pain with labral testing L . Balance/Special Test Scores Quick DASH Score: 70.4525 Goals Goal 1:: 130 AROM flexion adn abduction L shoulder and to L5 IR to help with ADLs at home Goal Time Frame: 4-6 Weeks Goal 2:: Pt feel pain in shoulder 50% better to 3/10 pain intermittently Goal Time Frame: 4-6 Weeks Goal 3:: quickdash score 15 or better. Goal Time Frame: 4-6 Weeks Goal 4:: I manangement of condition including ROM stretch and general strength ex at [employer]. Goal Time Frame: 4-6 Weeks Goal 5:: Sleep without interruption rolling on L side. Goal Time Frame: 4-6 Weeks Rehabilitation Potential Physical Therapy Diagnosis: L shoulder impingement is the main problem for prisca prieto outside of TBI cognitive symptoms. He is scheduled for a speccialist which is appropriate based on the cause of injury and historical lack of significant improvement over the last year. Rehabilitation Potential: Questionable Anticipated Interventions Patient/Client Instruction: Educate patient on: Condition and Plan of Care For the Purpose of:: To decrease pain, To increase ROM, To improve nutrient delivery to tissue, To improve muscle performance and motor function and To increase tolerance to activity/condition/position Therapeutic Exercise to Include: Strength training, Postural training, Passive ROM and Active ROM For the Purpose of:: To decrease pain, To increase ROM, To improve nutrient delivery to tissue, To improve muscle performance and motor function and To increase tolerance to activity/condition/position Manual Therapy Techniques to Include: Mobilization, Passive ROM and Soft tissue mobilization For the Purpose of:: To decrease pain, To increase ROM, To improve nutrient d elivery to tissue, To improve muscle performance and motor function, To increase tolerance to activity/condition/position and To improve ability of physical actions for home/community/work/leisure Cryotherapy (ice pack, ice massage): Yes Thermo therapy (hot pack): Yes For the Purpose of:: To decrease swelling/inflammation and To improve nutrient delivery to tissue Text: Thank you for the opportunity to evaluate your patient. For Medicare and Medicare HMO plans, please review the plan of care and approve it. It will need to be FAXED BACK to us at [phone] for Medicare purposes. For Medicare only, by signing this I certify the plan of care. Please let me know if there are questions or concerns regarding this plan of care. Physician Signature: Date:
--- NOTE | 2023-04-25 12:27 | HP.OTEVAL ---
Patient's Visit Information Visit Information Visit Information: TERRELL GUERRERO is a 27 year old M, referred to Occupational Therapy by Dr. Jeramie Collier MD, with a diagnosis of history of TBI and post-traumatic headache. Date of Evaluation: 04/19/23 Occupational Therapist: Mary Pressley, ADALBERTO/Caitlin, CHT Subjective Subjective: Pt arrives on time to OT [facility] with history of TBI and post-traumatic headache. Pt reports he has received cortisone shots. Pt reports he struggles with left side. Pt reports no difficulty with ADL tasks and some IADL, girlfriend performs cooking tasks at home. Pt reports he is partially disable and waiting for MMI to be completed. April 07 2022 is when he fell and experienced a TBI. Pt reports working out at [employer], leading a very active lifestyle. Strength Shoulder: Fet2 (# of resistance) right Flex 13.6 Ext 16.6 left Flex 15.2 Ext 18.2 Elbow: Fet2 (# of resistance) right Flex 14.8 Ext 18.5 left Flex 20.2 Ext 16.8 Human Resources Coordinator: R 30# outstretched 5# L 8# outstretched 5# Lateral Pinch: R 5# L 6# Tripod Pinch: R 4# L 6# Strength Comments: BTE Human Resources Coordinator strength R 28.1# L 30.4# diff 7.8% Elbow extension R 13.3# L 13.5# - 1.3% diff Shoulder extension R 12.5# L 12.5# - .1% diff Shoulder flexion R 13.1# L 11.8# - 16.3% diff Elbow flexion R 12# L 14.9# - 23.6% diff Bilateral UE is grossly equal Nine Hole Peg Right: 36.20 sec Left: 33.57 sec Comments: difficulty targeting pins In-Hand Manipulation Finger to Palm Translation: Mild - Right and Mild - Left Palm to Finger Translation: Normal - Right and Mild - Left Comments: demonstrates difficulty targeting and lowers head to floor level uses comp when dropping coins - though related to vision disability and at baseline from previous therapy sessions Quick DASH-Disab of Arm,Shoulder& Hand Quick DASH Score: 61.3625 Rehabilitation General Assessment: Pt arrives with a dx of history of TBI and post-traumatic headache. Pt also has a dx on left shoulder impingement which the patient will be seeing PT to address this. This has affected with pt's ability to perform some IADL, though overall independent in performing functional ADL tasks and some IADL tasks. Pt gross strength is equal bilaterally. Pt's furnace helper and UE strength should improve as pt progresses with his home exercise program and PT intervention. At this time no skilled OT is indicated. Pt will continue with PT for dx of impingent syndrome. Therapy session was directly supervised and doc. approved by Mary Pressley OTR/L, CHT. Anticipated Interventions Anticipated Interventions: Home Program Visit Plan TEXT: Thank you for the opportunity to evaluate your patient. For Medicare and Medicare HMO plans, please review the plan of care and approve it. It will need to be FAXED BACK to us at [phone] for Medicare purposes. Please let me know if there are questions or concerns regarding this plan of care. Physician Signature: Date:
--- NOTE | 2023-04-26 16:11 | HP.SP.EV_ITS ---
History History Date of Eval: 04/19/23 Attending Doctor: Referring Doctor: Reason for Referral: TBI Medical Diagnosis (from RX): TBI Previous speech therapy: Yes Results: Jean Ovalle is discharged from speech therapy at [facility] as of 03/23/23 due to no further visited scheduled by the patient. He was treated twice weekly for cognitive deficits following a TBI. His report in September stated: Comparisons between both testing dates reveal Pt has been stagnant or has lost skill in his recovery process despite skilled intervention. See above for progress on goals targeted in therapy. Pt meeting 2 goals with another being stagnant, the other still progressing, and another with significantly slow progression (>4 months). Pt often not challenging himself at home, so progress and carryover from week to week is minimal. 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 Sessions were reduced to weekly. Progress remained limited and the patient reported that he does not have any home activities to complete. Patient requested a new therapy and completed only one session with myself with more sessions requested to be scheduled by the patient. He did not schedule any further visits. Other Relevant Medical History/Diagnoses/Surgery: Antisocial personality disorder, patient was diagnosed with schizophrenia in 2020 but states that he is not this now. Paranoid. 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 History from neuropysch eval from [facility] lists history to include: acute paranoia, anxiety, Asperger's syndrome, attention deficit disorder, intracranial hemorrhage, panic attacks, schizoaffective disorder and TBI with subdural and Ic hematoma. Medications related to this diagnosis: Lorazepam (prn) per patient. Smoking Status: Former smoker Hx Tobacco Use: No Pain Is pain an issue with your current prescribed condition?: No Personal Preferred language: Polish Patient Allergies Allergies Allergies: Allergies Seasonal Allergies: Uncoded Allergy (Mild, Verified 04/05/23 10:41) Other cat dander Allergy (Verified 04/05/23 10:41) Other * Pediatric & Adult patients Adult CLQT CLQT CLQT Administered: Yes CLQT: Cognitive Linguistic Quick Test (CLQT) is a criterion - referenced assessment designed for adults between the ages of 18 and 89 with known or suspected neurological dysfuntions. The CLQT is to assess strength and weaknesses in five cognitive domains. Severity ratings are within normal limits, mild, moderate, severe deficits. The subtests are as follows: Date: 04/19/23 Attention Attention: Moderate Memory Memory: Severe Executive Functions Executive Functions: Mild Language Language: Mild Visuospatial Skills Visuospatial Skills: Moderate Composite Severity Rating Composite Severity Rating: Moderate CLQT Comments Testing: -: Patient did not meet the criterion cut scores for the subtests of symbol cancellation, confrontational naming, story retelling, symbol trails, design memory, mazes and design generation. For symbol cancellation he was able to identify the correct symbol for majority of the right ones then went back through and crossed off a similar one unprompted even with correct symbol in view. Confrontation naming was 8/10 and his answers were always related stool for chair, velcro for zipper. Once questioned on the words he was able to then state it did look like what therapist stated it was. Story retelling was only 4 details with added details ( different name - Jasvir when story stated berto's ). When given 6 yes/ no questions regarding story he answered 1/6. For Mazes he did not listen to directs and not cross lines as he was very impulsive to complete before directions were given completely. The mazes were completed correctly. The design generation was 5 instead of 6 but he needed encouragement to continue to try for the whole time allowed ( 3 minutes) as he stopped after half the time. Previous scores:: -: - CLQT CLQT Administered: Yes CLQT: Cognitive Linguistic Quick Test (CLQT) is a criterion - referenced assessment designed for adults between the ages of 18 and 89 with known or suspected neurological dysfuntions. The CLQT is to assess strength and weaknesses in five cognitive domains. Severity ratings are within normal limits, mild, moderate, severe deficits. The subtests are as follows: Date: 08/16/2022 - Attention Attention: Moderate - Memory Memory: Severe - Executive Functions Executive Functions: WNL - Language Language: Severe - Visuospatial Skills Visuospatial Skills: Moderate - Composite Severity Rating Composite Severity Rating: Moderate Comparison: -: 04/05/2022 Testing vs. 08/16/2022 Testing Date 04/05/2022. Cognitive Domain Scores: Attention = 82 (Moderate); Memory = 96 (Severe); Executive Functioning = 23 (Mild); Language = 22 (Moderate); Visuospatial Skills = 56 (Mild); Clock Drawing = 13 (WNL). Date 08/16/2022. Cognitive Domain Scores: Attention = 61 (Moderate); Memory = 82 (Severe); Executive Functioning = 24 (WNL, however on the cut off between WNL and Mild); Language = 20.5 (Severe); Visuospatial Skills = 45 (Moderate); Clock Drawing = 13 (WNL) Reference: Neuro-QoL instrument Radiation Oncology Patient Plan Plan Plan: Will recommend Pt for weekly outpatient speech therapy to address mod cognitive impairment characterized by deficits in immediate and short-term memory, executive functioning, and problem solving/reasoning. Pt would benefit from training in compensatory strategies for recall as well as cognitive training to improve cognitive functioning. Recommendations Treatment Warranted: Yes Treatment Warranted: Cognition Progress Prognosis: Fair Frequency Frequency: 1x/Week Duration: 6 Weeks Visits in this POC: 6 Goals that are Established Determination:: Goals will be added/modified as deemed necessary and appropriate. Therapy will be discontinued when results of re-evaluation indicate therapy is no longer needed or lack of progress has been documented. Goal #1-5 Goal #1: Jean will complete basic to mod complex sustained, alternating, divided attention tasks with 90% acc independently across 3 measured opportunities. Goal #2: Jean will use compensatory strategies for recall including but not limited to planners, memory journal, to do lists,etc on 4/t trials on 2/3 consecutive sessions. Goal #3: Jean will complete basic to mod complex problem solving, planning, organizing, and sequencing tasks with 80% acc with min cues across 3 measured opportunities. Education Patient has Indicated that the Following Identified Educational Needs: Cognitively Impaired Patient Instruction Patient Education: Diagnosis and Treatment Plan Person Taught: Patient Response to teaching: Verbalize understanding and Has Prior Knowledge
--- NOTE | 2023-05-12 12:41 | HP.PT.NRP ---
Patient Information Patient Information: TERRELL GUERRERO was seen in my office for initial evaluation on 04/22/23. The following Plan of Care was established for this patient: POC Established Initial Frequency: 2-3x /Week Initial Duration: 4-6 Weeks Anticipated Interventions Patient/Client Instruction: Educate patient on: Condition and Plan of Care For the Purpose of:: To decrease pain, To increase ROM, To improve nutrient delivery to tissue, To improve muscle performance and motor function and To increase tolerance to activity/condition/position Therapeutic Exercise to Include: Strength training, Postural training, Passive ROM and Active ROM For the Purpose of:: To decrease pain, To increase ROM, To improve nutrient delivery to tissue, To improve muscle performance and motor function and To increase tolerance to activity/condition/position Manual Therapy Techniques to Include: Mobilization, Passive ROM and Soft tissue mobilization For the Purpose of:: To decrease pain, To increase ROM, To improve nutrient delivery to tissue, To improve muscle performance and motor function, To increase tolerance to activity/condition/position and To improve ability of physical actions for home/community/work/leisure Cryotherapy (ice pack, ice massage): Yes Thermo therapy (hot pack): Yes For the Purpose of:: To decrease swelling/inflammation and To improve nutrient delivery to tissue Last Seen Last Seen: This patient was last seen in our office 04/22/23. Pertinent comments regarding their Physical therapy will appear below: Pt seen for IE on 04/22/23 and POC established and approval received. Upon calling patient to schedule, he stated he no longer desired PT. i will discontinue him at his request. At this point I will be discontinuing this patient from physical therapy. I would be happy to see this patient again in the future if found appropriate by the physician. Thank you! Milan Mitchell, DPT, OCS, CSCS Balance/Gait/Functional tests Balance/Special Test Scores Quick DASH Score: 70.4526
--- NOTE | 2023-08-01 18:21 | HP.SP.DC_ITS ---
ST Discharge Summary Discharged: Discharge: Jean Ovalle is discharged from speech therapy at [facility] as of 06/28/23. He was treated following his TBI which was in February of 2022. His goals focused on sustained, alternating, divided attention tasks , use compensatory strategies for recall including but not limited to planners, memory journal, to do lists, etc and mod complex problem solving, planning, organizing, and sequencing tasks. Jean was given multiple compensatory strategies for recall and refused to complete any of them. 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 He made up statements that therapist said which were never said to him. His statements were often in conflict from week to week and even within the session. He stated that he had his money and all appointments taken away from him by the government then stated that all his bills are paid for a year currently, so he has no need for money. He is discharged due to non-compliance and behavior towards therapists. See daily notes for complete details.
== END 2023-06-28 19:00 | disposition home or self-care (01) ==
LOC: SP 12:30
PROVIDERS: PCP Internal Medicine; Referring Provider Internal Medicine; Visit Provider Internal Medicine
DX: Z87.820 Personal history of traumatic brain injury (principal); G44.309 Post-traumatic headache, unspecified, not intractable; R41.89 Other symptoms and signs involving cognitive functions and awareness; M75.42 Impingement syndrome of left shoulder
CPT/HCPCS: 92507; 97129; 97130; 97162; 97166

== ENCOUNTER 2024-03-08 09:52 | Emergency (ER) | payer MEDICAID, SELFPAY ==
[2024-03-08 09:52] VITALS: BP 128/94; PULSE 69; RESP 14; TEMP 36.6; O2SAT 98; BMI 28.5
[2024-03-08] MEDS: 0.9% Normal Saline (1000mL) 1,000 ML 1000 ML IV (10:36)
[2024-03-08 10:46] LABS: Absolute Lymphocyte Count 2.86 X10^3/uL (0.83-4.51); Absolute Neutrophil Count 14.9 X10^3/uL (2.0-7.7); Basophil# 0.06 X10^3/uL; Basophil% 0.3 % (0-1); Eosinophil# 0.05 X10^3/uL; Eosinophils% 0.3 % (0-5); Hematocrit 47.6 % (40-54); Hemoglobin 16.5 g/dL (13.0-16.5); Lymphocyte # 2.86 X10^3/ul (0.83-4.51); Lymphocyte % 14.7 % (19-41); Mean Corp Hgb Conc 34.7 g/dL (32-36); Mean Corpuscular Hgb 29.8 pg (27.0-32.0); Mean Corpuscular Volume 86.1 fL (80-94); Mean Platelet Vol. 9.6 fl (6.2-12.0); Monocyte# 1.54 X10^3/uL; Monocyte% 7.9 % (0-10); NRBC Flagged by Analyzer 0 % (0-5); Neutrophil # 14.85 X10^3/uL (2.7-7.7); Neutrophil % 76.4 % (47-70); POSITIVE DIFFERENTIAL YES; Platelet Count 314 K/mm3 (150-450); RBC Distribution Width CV 12.6 % (11.6-14.6); RBC Distribution Width SD 39.7 fl (35.1-43.9); Red Blood Count 5.53 M/mm3 (4.6-6.2); White Blood Count 19.4 K/mm3 (4.4-11.0)
[2024-03-08 10:47] LABS: Differential Indicated SCAN CRITERIA MET
--- NOTE | 2024-03-08 10:52 | EX.ED.DYSGE1 ---
HPI History of Present Illness Chief Complaint: Sore Throat Detail of Chief Complaint: Sore throat with white spots back of throat, diarrhea, generalized weakness Informant: patient Onset/Context/Timing Onset: Days Context: Sudden Onset Timing: Continuous Quality: Generalized weakness, throat pain, Location: Posterior pharynx Current Severity: Mild Maximum Severity: Moderate Worsened by: Swallowing liquids or solids Relieved by: Nothing Associated Symptoms Associated Symptoms: No abdominal pain with the diarrhea. Narrative Narrative: Patient is a 28-year-old male. Patient has history of schizoaffective disorder and has a service dog with him. He does have history of traumatic brain injury. He presents because of sore throat with white spots back of his throat. He had a rapid strep 2 days ago which was reported as negative. He does complain of subjective fever without chills. He denies headache, visual, ocular auditory symptoms. He denies rhinorrhea, congestion postnasal drainage. Denies ear pain. He denies neck pain or neck stiffness. He denies cough, shortness of breath or difficulty breathing. He denies abdominal pain. He had some off-and-on nausea without vomiting. He has had diarrhea the past 12 to 24 hours. He has not noted any blood or mucus in his diarrhea. He has no history inflammatory bowel disorder. Patient does report decreased urine output and dark-colored urine. He states he has not been eating or drinking well. Prior similar symptoms: Yes Recent Illness/Hospitalization: Yes [facility] Medical History Strain of long head of left biceps Internal impingement of left shoulder Other instability, left shoulder Left shoulder pain Brain bleed TBI (traumatic brain injury) Anxiety Asthma Home Medications ?Medication ?Instructions ?Recorded ?Last Taken ?Type lorazepam 0.5 mg tablet 0.5 mg PO DAILY PRN 04/19/22 Unknown History flurbiprofen 100 mg tablet 100 mg PO TID PRN headache #90 tabs 03/14/23 Unknown Rx meclizine 25 mg tablet 25 mg PO TID PRN dizziness #90 tabs 03/14/23 Unknown Rx Allergy/AdvReac Type Severity Reaction Status Date / Time Seasonal Allergies: Uncoded Allergy Mild Other Verified 03/08/24 09:53 cat dander Allergy Other Verified 03/08/24 09:53 Family History Grandfather Heart disease Diabetes Grandmother Blood clot in vein Surgical History Hx of craniotomy Social History household members: family current occupational status: disabled Smoking Status: Never smoker Electronic Cigarette Use: not used alcohol intake: never substance use type: marijuana do you feel safe at home: Yes ROS ROS ED Constitutional Constitutional ED: Reports chills; Denies fever(s), subjective or sweats Eyes Eyes: Denies blurry vision, change in vision or diplopia ENT ENT ED: Reports sore throat; Denies ear pain or rhinorrhea Cardiovascular Cardiovascular: Denies chest pain or palpitations Respiratory/Chest Respiratory/Chest: Denies cough, dyspnea or dyspnea on exertion Gastrointestinal Gastrointestinal: Reports diarrhea and nausea; Denies abdominal pain, constipation, melena or vomiting Genitourinary Genitourinary ED: Reports other Details: Decreased urine output and dark urine. ; Denies dysuria, hematuria or urinary frequency Musculoskeletal Musculoskeletal: Denies arthralgias or myalgias Integumentary Denies rash Neurologic Neurologic: Reports weakness; Denies headache(s) or paresthesias Endocrine Endocrinology: Denies cold intolerance or heat intolerance Hematologic/Lymphatic Hematologic/Lymphatic: Reports systems reviewed and no addt'l complaints, except as documented EXAM Physical Exam Const Vital Signs: 03/08/24 09:52 Temperature 97.9 F Temperature Source Temporal Pulse Rate 14 L Respiratory Rate 69 H Blood Pressure 128/94 H Blood Pressure Mean 105 Pulse Ox 98 Oxygen Delivery Method Room Air Suspect the respiratory rate and heart rate numbers are reversed. Positive well nourished and well developed Constitutional Narrative: Patient appears ill but not toxic. General Appearance ED: well developed, NAD and pallor HEENT Reports dry mucous membranes HEENT Narrative: Posterior pharynx with erythema and exudate. Tonsils are enlarged. Uvula is midline. There is no evidence of angioedema. There is no deviation with protrusion. Mouth ED: Yes dry mucous membranes Mouth: dry mucous membranes Eyes PERRL and EOMs intact bilaterally General Eye ED: Negative for pale conjunctiva or scleral icterus Neck no lymphadenopathy and supple Chest Wall inspection of chest normal and palpation of chest normal Resp normal respiratory effort and clear to auscultation bilaterally Cardio regular rate, regular rhythm, S1 normal heart sound, S2 normal heart sound and no murmurs GI normal to inspection, nondistended, normoactive bowel sounds, non-tender, non-distended and no masses; Negative for hepatosplenomegaly Back/Spine no CVA tenderness Neuro oriented x3, CN's II-XII intact bilaterally and no sensory deficits noted Sensorium / Orientation: alert Motor Exam: strength 5/5 throughout Psych Mood & Affect: depressed Skin no rashes or lesions noted, no wounds and skin turgor normal General Skin Exam: pallor; Negative for jaundice MDM MDM MDM Narrative Medical decision making narrative: Patient is exudative tonsillitis. Will obtain CBC looking for atypical lymphocytes as well as white count. Since he is pale also to assess for anemia. Clinically there is no evidence of a peritonsillar cellulitis or peritonsillar abscess. Furthermore, he has no trismus. Because of the reported diarrhea and generalized weakness basic metabolic panel was obtained to assess renal function, CO2 anion gap and evaluate for hypokalemia. Since he clinically appears dehydrated 1 L of normal saline was ordered. History & Record Review Additional record(s) reviewed:: Prior outpatient record (For impingement of left shoulder.), Prior ED visit (December 2021 for acute anxiety. May 2021 for testicular pain.) and Prior labs Lab Data Attestation: I reviewed the patient's lab results. Lab results narrative: White count is elevated with slight shift. There were no atypical lymphs to suggest mononucleosis. Monospot was not obtained since sensitivity is less than 10% with only a couple days of illness. Electrolyte panel is unremarkable with no evidence of prerenal azotemia. There is no evidence of hypokalemia. Pain Labs: Laboratory Results - last 24 hr 03/08/24 10:36 WBC 19.4 H RBC 5.53 Hgb 16.5 Hct 47.6 MCV 86.1 MCH 29.8 MCHC 34.7 RDW Std Deviation 39.7 RDW Coeff of Argenis 12.6 Plt Count 314 MPV 9.6 Immature Gran % (Auto) 0.400 Neut % (Auto) 76.4 H Lymph % (Auto) 14.7 L [place] % (Auto) 7.9 Eos % (Auto) 0.3 Baso % (Auto) 0.3 Absolute Neuts (auto) 14.9 H Absolute Lymphs (auto) 2.86 Nucleated RBC % 0 Differential Comment SCANNED Diff Path Review May foll Sodium 135 L Potassium 3.6 Chloride 104 Carbon Dioxide 22.0 Anion Gap 9 BUN 13 Creatinine 1.11 Estim Creat Clear Calc 123.21 Est GFR (MDRD) Af Amer 102 Est GFR (MDRD) Non-Af 84 BUN/Creatinine Ratio 11.7 Glucose 122 H Calcium 10.1 Discharge Plan Triage Chief Complaint: Sore Throat ED Provider: Fred Moore Dx/Rx/DC Orders Clinical Impression: Exudative tonsillitis, Acute dehydration, Diarrhea Instructions: ED Diarrhea, Unknown Cause, ED Pharyngitis, Viral Prescriptions: No Action lorazepam 0.5 mg tablet 0.5 mg PO DAILY PRN meclizine 25 mg tablet 25 mg PO TID PRN (Reason: dizziness) Qty: 90 5RF flurbiprofen 100 mg tablet 100 mg PO TID PRN (Reason: headache) Qty: 90 5RF Primary Care Provider: Care Physician,No Primary Referrals: Care Physician,No Primary [Primary Care Provider] - Doctor,Your [Non-Staff] - 1 Week if not improving Activity Restrictions/Additional Instructions: 1. Salt water gargles 4-6 times a day (2 tablespoons of salt in a glass of water). 2. You may use Chloraseptic spray or Cepastat lozenges for your throat discomfort as instructed on the bottle or box. 3. You may take Imodium for your diarrhea as instructed on the box. Print Language: Tajik Disposition Disposition: Home, Self Care
[2024-03-08 11:03] LABS: Anion Gap 9 (5-15); BUN 13 mg/dL (7-18); BUN/Creat Ratio 11.7 RATIO (10-20); Calcium,Total 10.1 mg/dL (8.5-10.1); Chloride 104 mmol/L (98-107); Creatinine, Serum 1.11 mg/dL (0.70-1.30); EST Glomerular Filtration Rate 84 mL/min (>60); Est Glom Filt Rate - Afr Amer 102 mL/min (>60); Estimated Creatinine Clearance 123.21 ml/min; Glucose 122 mg/dL (74-106); Potassium 3.6 mmol/L (3.5-5.1); Sodium Level 135 mmol/L (136-145)
[2024-03-08 11:29] LABS: Differential Comment SCANNED
[2024-03-08 12:13] VITALS: BP 125/72; PULSE 65; RESP 16; TEMP 36.6; O2SAT 99
[2024-03-09 11:22] LABS: Pathologist Review Reviewed
== END 2024-03-08 12:15 | disposition home or self-care (01) ==
PROVIDERS: Emergency Provider Emergency Medicine; Visit Provider Emergency Medicine
DX: J03.90 Acute tonsillitis, unspecified (principal); R19.7 Diarrhea, unspecified; E86.0 Dehydration
CPT/HCPCS: 80048; 85025; 87651; 96360; 99283; J7030; A4216

== ENCOUNTER 2024-03-09 22:29 | Emergency (ER) | payer MEDICAID, SELFPAY ==
[2024-03-09 22:30] VITALS: BP 150/88; PULSE 102; RESP 16; TEMP 36.6; O2SAT 98; BMI 27.7
[2024-03-09 22:32] VITALS: BP 150/88; PULSE 102; RESP 16; TEMP 36.6; O2SAT 98
--- NOTE | 2024-03-09 22:43 | CT_ITS ---
INDICATION: ? abscess on left EXAMINATION: CT NECK WITH CONTRAST - CT Soft Tissue Neck W/ Contrast Injection TECHNIQUE: Helically acquired images were obtained of the neck with sagittal and coronal reconstructed images. Individualized dose optimization techniques were used for this CT. IV contrast dosage and agent: 100 mL of Isovue-370. COMPARISON: None. FINDINGS: NASOPHARYNX: Unremarkable. SUPRAHYOID NECK: 1.6 x 1.3 cm rim-enhancing fluid collection with septations versus loculation in the left peritonsillar space with enlarged bilateral tonsils and narrowing of the adjacent oropharynx. INFRAHYOID NECK: Unremarkable larynx, hypopharynx, and supraglottis. THYROID: Unremarkable. SALIVARY GLANDS: Unremarkable. LYMPH NODES: Left greater than right anterior cervical and submandibular lymphadenopathy, likely reactive. VASCULAR STRUCTURES: Unremarkable. VISUALIZED PORTIONS OF THE ORBITS, PARANASAL SINUSES, MASTOID AIR CELLS AND SKULL BASE: Unremarkable. BONES: Unremarkable. SOFT TISSUES: Unremarkable. THORACIC INLET: Visualized lung apices are unremarkable. Visualized brain demonstrates a probable arachnoid cyst in the left anterior middle cranial fossa. CT/Soft Tissue Neck WITH Contrast IMPRESSION: 1.6 cm left peritonsillar abscess, possibly loculated. Bilateral tonsillar hypertrophy, left greater than right, with narrowing of the adjacent oropharynx. Electronically Signed: Les Nicholson DO at 0:32 EDT ,
[2024-03-09] MEDS: Piperacil/Tazobactam 3.375 GM in 0.9% Normal Saline (50mL MB+) 50 ML IV (23:02)
[2024-03-09] MEDS: Ketorolac 30 MG/ML Syringe IV (23:02)
[2024-03-09] MEDS: 0.9% Normal Saline (1000mL) 1,000 ML 999 ML IV (23:02)
[2024-03-09] MEDS: dexAMETHasone 10 MG/ML Vial IV (23:03)
[2024-03-09 23:07] VITALS: BP 136/88; PULSE 79; RESP 18; TEMP 37.2; O2SAT 98
[2024-03-09 23:08] LABS: Absolute Lymphocyte Count 3.57 X10^3/uL (0.83-4.51); Absolute Neutrophil Count 8.8 X10^3/uL (2.0-7.7); Basophil# 0.08 X10^3/uL; Basophil% 0.6 % (0-1); Eosinophil# 0.04 X10^3/uL; Eosinophils% 0.3 % (0-5); Hematocrit 44.4 % (40-54); Hemoglobin 15.3 g/dL (13.0-16.5); Lymphocyte # 3.57 X10^3/ul (0.83-4.51); Lymphocyte % 25.7 % (19-41); Mean Corp Hgb Conc 34.5 g/dL (32-36); Mean Corpuscular Hgb 29.7 pg (27.0-32.0); Mean Platelet Vol. 9.6 fl (6.2-12.0); Monocyte# 1.31 X10^3/uL; Monocyte% 9.4 % (0-10); NRBC Flagged by Analyzer 0 % (0-5); Neutrophil # 8.82 X10^3/uL (2.7-7.7); Neutrophil % 63.5 % (47-70); Platelet Count 355 K/mm3 (150-450); RBC Distribution Width CV 12.7 % (11.6-14.6); RBC Distribution Width SD 39.8 fl (35.1-43.9); Red Blood Count 5.16 M/mm3 (4.6-6.2); White Blood Count 13.9 K/mm3 (4.4-11.0)
[2024-03-09 23:10] LABS: POSITIVE COUNT NO; POSITIVE DIFFERENTIAL NO; POSITIVE MORPHOLOGY NO
[2024-03-09 23:24] LABS: Anion Gap 8 (5-15); BUN 15 mg/dL (7-18); BUN/Creat Ratio 15.2 RATIO (10-20); Calcium,Total 9.5 mg/dL (8.5-10.1); Chloride 106 mmol/L (98-107); Creatinine, Serum 0.99 mg/dL (0.70-1.30); EST Glomerular Filtration Rate 97 mL/min (>60); Est Glom Filt Rate - Afr Amer 117 mL/min (>60); Estimated Creatinine Clearance 126.67 ml/min; Glucose 110 mg/dL (74-106); Potassium 3.2 mmol/L (3.5-5.1); Sodium Level 137 mmol/L (136-145)
[2024-03-09 23:33] LABS: Internal QC Validated? YES +Cl - CLEAR BKGD; Monotest Negative (Negative)
[2024-03-09 23:34] LABS: Record Kit Lot#, Mono 13241033
[2024-03-10 00:56] VITALS: BP 144/81; PULSE 59; RESP 18; O2SAT 99
--- NOTE | 2024-03-10 00:56 | EX.ED.DYSGE1 ---
HPI History of Present Illness Chief Complaint: Sore Throat Informant: patient Narrative Narrative: Patient is a 28-year-old male with past medical history of TBI and schizoaffective disorder who was seen yesterday secondary to sore throat. At that time he had blood work obtained with rapid strep swab which was negative. He states today he has had intermittent fever and he feels like he has more pain and difficulty swallowing and with worsening symptoms he returns for repeat evaluation [facility] Medical History Strain of long head of left biceps Internal impingement of left shoulder Other instability, left shoulder Left shoulder pain Brain bleed TBI (traumatic brain injury) Anxiety Asthma Home Medications ?Medication ?Instructions ?Recorded ?Last Taken ?Type lorazepam 0.5 mg tablet 0.5 mg PO DAILY PRN 04/19/22 Unknown History flurbiprofen 100 mg tablet 100 mg PO TID PRN headache #90 tabs 03/14/23 Unknown Rx meclizine 25 mg tablet 25 mg PO TID PRN dizziness #90 tabs 03/14/23 Unknown Rx amoxicillin 400 mg-potassium 11 ml PO BID 10 days #220 mL 03/10/24 Unknown Rx clavulanate 57 mg/5 mL oral suspension Allergy/AdvReac Type Severity Reaction Status Date / Time Seasonal Allergies: Uncoded Allergy Mild Other Verified 03/09/24 22:33 cat dander Allergy Other Verified 03/09/24 22:33 Family History Grandfather Heart disease Diabetes Grandmother Blood clot in vein Surgical History Hx of craniotomy Social History household members: family current occupational status: disabled Smoking Status: Never smoker Electronic Cigarette Use: not used alcohol intake: never substance use type: marijuana do you feel safe at home: Yes ROS ROS ED Constitutional Constitutional ED: Reports chills and fever(s) ENT ENT ED: Reports sore throat Cardiovascular Cardiovascular: Denies chest pain Respiratory/Chest Respiratory/Chest: Denies cough or dyspnea Gastrointestinal Gastrointestinal: Denies abdominal pain, diarrhea, nausea or vomiting Genitourinary Genitourinary ED: Denies dysuria Musculoskeletal Musculoskeletal: Reports neck pain; Denies myalgias Integumentary Denies rash Neurologic Neurologic: Denies headache(s) Hematologic/Lymphatic Hematologic/Lymphatic: Denies easy bleeding or easy bruising Allergic/Immunologic Allergic/Immunologic ED: Denies mouth swelling or tongue swelling EXAM Physical Exam Const Vital Signs: 03/09/24 22:30 03/09/24 22:32 03/09/24 23:07 Temperature 97.8 F 97.8 F 99 F Temperature Source Temporal Temporal Oral Pulse Rate 102 H 102 H 79 Respiratory Rate 16 16 18 Blood Pressure 150/88 H 150/88 H 136/88 H Blood Pressure Mean 108 108 104 Pulse Ox 98 98 98 Oxygen Delivery Method Room Air Room Air Room Air Positive well nourished and well developed General Appearance ED: well developed; Negative for pallor HEENT HEENT Narrative: There is diffuse erythema in the posterior pharynx with +2 right sided tonsil hypertrophy and +4 left-sided tonsil hypertrophy. Scant exudates are noted. No hard palate petechiae present. Patient does have mild trismus and slight change in voice but no difficulty with secretions. No airway compromise Eyes PERRL and EOMs intact bilaterally General Eye ED: Negative for pale conjunctiva or scleral icterus Neck supple Neck Narrative: There is bilateral anterior cervical lymphadenopathy noted with left greater than right No nuchal rigidity or meningeal signs Resp normal respiratory effort and clear to auscultation bilaterally Resp Narrative: No nasal flaring retractions tachypnea or accessory muscle use Cardio regular rate and regular rhythm Extremity normal to inspection Neuro oriented x3 and CN's II-XII intact bilaterally Sensorium / Orientation: alert Psych Psych Narrative: Patient has a flat affect Skin no rashes or lesions noted General Skin Exam: Negative for jaundice or pallor MDM MDM MDM Narrative Medical decision making narrative: Patient presented to the ER hypertensive otherwise with stable vitals. He reported worsening of his sore throat and on exam there is tonsillar perjury feet left greater than right and he does have mild trismus and change in phonation. Differential diagnosis therefore is peritonsillar abscess versus strep throat versus viral pharyngitis versus mononucleosis. A Monospot test was obtained which was negative and as he had a rapid strep yesterday which was negative felt no need to repeat testing. Patient also states he was seen in urgent care and had negative influenza and COVID test. With the change in phonation and slight trismus the most likely diagnosis is for peritonsillar abscess so a CT scan of the neck was obtained with IV contrast. This did show a left-sided peritonsillar abscess which is 1.6 cm in size without obvious airway compromise. At this time as the abscess is under 2 cm and his vitals are stable and he is not having difficulty with secretions and there is no findings to suggest airway compromise or obstruction I do not feel there is need for admission or incision and drainage. He will be started on Augmentin secondary to the infection and can follow-up with ENT to discuss further intervention if the antibiotics do not resolve symptoms. This plan of care was discussed with the patient and he is agreeable to it History & Record Review Discussion w/independent historian: Patient Lab Data Labs: Laboratory Results - last 24 hr 03/09/24 22:58 WBC 13.9 H RBC 5.16 Hgb 15.3 Hct 44.4 MCV 86.0 MCH 29.7 MCHC 34.5 RDW Std Deviation 39.8 RDW Coeff of Argenis 12.7 Plt Count 355 MPV 9.6 Immature Gran % (Auto) 0.500 Neut % (Auto) 63.5 Lymph % (Auto) 25.7 [place] % (Auto) 9.4 Eos % (Auto) 0.3 Baso % (Auto) 0.6 Absolute Neuts (auto) 8.8 H Absolute Lymphs (auto) 3.57 Nucleated RBC % 0 Sodium 137 Potassium 3.2 L Chloride 106 Carbon Dioxide 23.0 Anion Gap 8 BUN 15 Creatinine 0.99 Estim Creat Clear Calc 126.67 Est GFR (MDRD) Af Amer 117 Est GFR (MDRD) Non-Af 97 BUN/Creatinine Ratio 15.2 Glucose 110 H Calcium 9.5 Monoscreen Negative Radiography Diagnostic Testing: Clinical Impression(s) from Imaging Studies Soft Tissue Neck CT 03/09/24 22:43 IMPRESSION: 1.6 cm left peritonsillar abscess, possibly loculated. Bilateral tonsillar hypertrophy, left greater than right, with narrowing of the adjacent oropharynx. Electronically Signed: Les Nicholson DO at 0:32 EDT , Discharge Plan Triage Chief Complaint: Sore Throat ED Provider: Eagle Nielson Dx/Rx/DC Orders Clinical Impression: Peritonsillar abscess, Schizoaffective disorder, History of traumatic brain injury Instructions: ED Peritonsillar Abscess Prescriptions: New amoxicillin-pot clavulanate 400-57 mg/5 mL suspension for reconstitution 11 ml PO BID 10 Days Qty: 220 0RF No Action lorazepam 0.5 mg tablet 0.5 mg PO DAILY PRN meclizine 25 mg tablet 25 mg PO TID PRN (Reason: dizziness) Qty: 90 5RF flurbiprofen 100 mg tablet 100 mg PO TID PRN (Reason: headache) Qty: 90 5RF Primary Care Provider: Care Physician,No Primary Referrals: To Hankins MD [Med Staff - Active Staff] - Care Physician,No Primary [Primary Care Provider] - Activity Restrictions/Additional Instructions: Your CT scan showed a pocket of infection/peritonsillar abscess on the left. Take the Augmentin/antibiotic as directed to help resolve this. As the area of infection is under 2 cm that should resolve with oral antibiotics. However follow-up with the ear nose and throat doctor/Dr. Hankins to discuss need for incision and drainage and return to the ER should you have any further concerns Print Language: Chinese Disposition Disposition: Home, Self Care
[2024-03-10 01:08] VITALS: BP 144/81; PULSE 59; RESP 18; TEMP 36.5; O2SAT 99
== END 2024-03-10 01:09 | disposition home or self-care (01) ==
PROVIDERS: Emergency Provider Emergency Medicine; Visit Provider Emergency Medicine
DX: J36 Peritonsillar abscess (principal); F25.9 Schizoaffective disorder, unspecified; Z87.820 Personal history of traumatic brain injury; F41.9 Anxiety disorder, unspecified; Z79.899 Other long term (current) drug therapy
CPT/HCPCS: 70491; 80048; 85025; 86308; 96361; 96365; 96375; 99283; J7030; Q9967; A4216

== ENCOUNTER 2024-06-22 13:03 | Outpatient (RCR) | payer OTHER, MEDICAID, SELFPAY ==
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
--- NOTE | 2024-08-20 13:14 | HP.PT.NRP ---
Patient Information Patient Information: TERRELL GUERRERO was seen in my office for initial evaluation on 06/22/24. The following Plan of Care was established for this patient: POC Established Initial Frequency: 1-2x /Week Initial Duration: 4-6 Weeks Anticipated Interventions Patient/Client Instruction: Educate patient on: Condition and Plan of Care For the Purpose of:: To increase tolerance to activity/condition/position and To improve gait and locomotor functions Therapeutic Exercise to Include: Balance training Last Seen Last Seen: This patient was last seen in our office 06/22/24. Pertinent comments regarding their Physical therapy will appear below: Pt seen one visit of POC and did not return for any further visits. Discontinue due to nonattendance. At this point I will be discontinuing this patient from physical therapy. I would be happy to see this patient again in the future if found appropriate by the physician. Thank you! Milan Mitchell, DPT, OCS, CSCS Balance/Gait/Functional tests Balance/Special Test Scores Functional Gait Assessment Score: 27 % Disability: 10.0000 CATSIB Score (Max score 120 seconds): 100 Dizziness Score: 32
== END 2024-06-22 19:00 | disposition home or self-care (01) ==
LOC: PT 13:03
DX: F07.81 Postconcussional syndrome (principal); G44.309 Post-traumatic headache, unspecified, not intractable
CPT/HCPCS: 97162

== ENCOUNTER 2024-07-22 12:08 | Emergency (ER) | payer MEDICAID, SELFPAY ==
[2024-07-22 12:08] VITALS: BP 147/77; PULSE 71; RESP 16; TEMP 36.2; O2SAT 98; BMI 27.8
[2024-07-22 13:33] LABS: Syphilis Antibodies Non-reactive
== END 2024-07-22 13:19 | disposition home or self-care (01) ==
PROVIDERS: Emergency Provider Emergency Medicine; Referring Provider Emergency Medicine; Visit Provider Emergency Medicine
DX: L73.9 Follicular disorder, unspecified (principal); N48.9 Disorder of penis, unspecified
CPT/HCPCS: 86780; 87252; 99282